=== PATIENT | female | born 1935 | race American Indian/Alaskan Native ===

== ENCOUNTER 2020-09-23 17:02 | Emergency (ER) | payer OTHER, MEDICAID ==
[2020-09-23 17:11] VITALS: BP 145/85
--- NOTE | 2020-09-23 17:38 | Event Note ---
ED Screening Note Date of service: 09/23/20 Time: 17:36 ED Screening Note: Patient complains of bruising and pain and swelling to her forearms mainly on the left side since September 16. Patient states that she had to have radioactive frequency ablation and the procedure required an IV. Patient states that he took multiple attempts to get an IV 2 of which did blow. She is on aspirin 81 mg only. she is concerned that she may have a blood clot This initial assessment/diagnostic orders/clinical plan/treatment(s) is/are subject to change based on patients health status, clinical progression and re- assessment by fellow clinical providers in the ED. Further treatment and workup at subsequent clinical providers discretion. Patient/guardian urged not to elope from the ED as their condition may be serious if not clinically assessed and managed. Initial orders include: Venous Doppler both bilateral upper extremity
--- NOTE | 2020-09-23 18:17 | Emergency Department Report ---
ED Extremity Problem HPI - General Chief complaint: Extremity Injury, Upper Stated complaint: POSS BLLOD CLOT LT ARM Time Seen by Provider: 09/23/20 18:11 Source: patient Mode of arrival: Ambulatory Limitations: No Limitations - History of Present Illness Initial comments: This is a 85-year-old female presents to the ED complaining left lower arm pain x8 days. Patient states that she had a procedure done on September 13 at [place] where she had an IV placed in her left arm. Patient states that the nurse that was placing her IV blew out 2 of her veins. Patient states that the next day she noticed some bruising to the arm. Patient states that she has been having pain in that arm since then. Patient denies any other injuries or trauma. Patient states that she is able to use the arm without any problems. She denies loss of sensation in the arm. She denies any other symptoms. MD Complaint: extremity pain - Related Data Home Medications Medication Instructions Recorded Confirmed Last Taken Aspirin [Aspirin BABY CHEW TAB] 81 mg PO QDAY 10/03/13 06/23/16 10/02/13 81 mg Pregabalin [Lyrica] 100 mg PO QDAY 10/03/13 06/23/16 10/02/13 100 mg amLODIPine 10 mg PO QDAY 10/03/13 06/23/16 10/02/13 10 mg Previous Rx's Medication Instructions Recorded Last Taken Type Famotidine [Pepcid] 20 mg PO QDAY #30 tablet 10/03/13 Unknown Rx Meclizine HCl [Antivert] 25 mg PO TID PRN #20 tablet 10/03/13 Unknown Rx traMADoL [Ultram] 50 mg PO Q6HR PRN #20 tablet 12/07/13 Unknown Rx Ondansetron [Zofran Odt] 4 mg PO Q6H PRN #20 tab.rapdis 06/23/16 Unknown Rx Naproxen [Naprosyn] 500 mg PO BID #30 tablet 09/23/20 Unknown Rx Allergies Allergy/AdvReac Type Severity Reaction Status Date / Time amitriptyline Allergy Unknown Verified 09/23/20 17:12 latex Allergy Rash Verified 09/23/20 17:12 monosodium glutamate Allergy Anaphylaxis Verified 09/23/20 17:12 pentosan polysulfate sodium Allergy Unknown Verified 09/23/20 17:12 [From [facility]] codeine AdvReac Vomiting Verified 11/02/14 09:28 morphine AdvReac Vomiting Verified 11/02/14 09:28 msg Allergy Anaphylaxis Uncoded 11/02/14 09:28 ED Review of Systems ROS: Stated complaint: POSS BLLOD CLOT LT ARM Other details as noted in HPI Comment: All other systems reviewed and negative ED Past Medical Hx - Past Medical History Previous Medical History?: Yes Hx Hypertension: Yes Hx Renal Disease: Yes Hx Kidney Stones: Yes Additional medical history: Coronary artery disease. peripheral neuropathy. CAD. spinal stensossis - Surgical History Past Surgical History?: Yes Hx Coronary Stent: Yes (2012) Additional Surgical History: lithotripsies. left ovary removed. tonsillectomy. radio frequency ablation of L4, L5 and S1 - Social History Smoking Status: Never Smoker Substance Use Type: None - Medications Home Medications: Home Medications Medication Instructions Recorded Confirmed Last Taken Type Aspirin [Aspirin BABY CHEW TAB] 81 mg PO QDAY 10/03/13 06/23/16 10/02/13 History 81 mg Famotidine [Pepcid] 20 mg PO QDAY #30 tablet 10/03/13 06/23/16 Unknown Rx Meclizine HCl [Antivert] 25 mg PO TID PRN #20 tablet 10/03/13 06/23/16 Unknown Rx Pregabalin [Lyrica] 100 mg PO QDAY 10/03/13 06/23/16 10/02/13 History 100 mg amLODIPine 10 mg PO QDAY 10/03/13 06/23/16 10/02/13 History 10 mg traMADoL [Ultram] 50 mg PO Q6HR PRN #20 tablet 12/07/13 06/23/16 Unknown Rx Ondansetron [Zofran Odt] 4 mg PO Q6H PRN #20 tab.rapdis 06/23/16 Unknown Rx Naproxen [Naprosyn] 500 mg PO BID #30 tablet 09/23/20 Unknown Rx ED Physical Exam - General Limitations: No Limitations General appearance: alert, in no apparent distress - Head Head exam: Present: atraumatic, normocephalic - Eye Eye exam: Present: normal appearance - ENT ENT exam: Present: mucous membranes moist - Neck Neck exam: Present: normal inspection - Respiratory Respiratory exam: Present: normal lung sounds bilaterally. Absent: respiratory distress - Cardiovascular Cardiovascular Exam: Present: regular rate, normal rhythm. Absent: systolic murmur, diastolic murmur, rubs, gallop - GI/Abdominal GI/Abdominal exam: Present: soft, normal bowel sounds - Extremities Exam Extremities exam: Present: normal inspection, full ROM, tenderness (To palpation of the left lower arm,), normal capillary refill, other (Ecchymosis noted on the left lower arm, contusion noted. Radial pulses present bilaterally). Absent: pedal edema, joint swelling - Back Exam Back exam: Present: normal inspection - Neurological Exam Neurological exam: Present: alert, oriented X3 - Psychiatric Psychiatric exam: Present: normal affect, normal mood - Skin Skin exam: Present: warm, dry, intact, normal color. Absent: rash ED Course Vital Signs 09/23/20 09/23/20 17:03 20:58 Temperature 98.5 F Pulse Rate 98 H 83 Respiratory 18 18 Rate Blood Pressure 145/85 O2 Sat by Pulse 97 97 Oximetry ED Medical Decision Making - Radiology Data Radiology results: report reviewed, image reviewed cc: TRE TELLES DUPLEX DOPPLER UPPER EXTREMITY VENOUS, BILATERAL INDICATION / CLINICAL INFORMATION: Upper extermity swelling/pain/bruising. TECHNIQUE: Duplex doppler imaging was performed through the veins of the right and left upper extremity using venous compression and other maneuvers. COMPARISON: None available. FINDINGS: RIGHT INTERNAL JUGULAR VEIN: Negative. RIGHT SUBCLAVIAN VEIN: Negative. RIGHT AXILLARY VEIN: Negative. RIGHT BRACHIAL VEIN: Negative. RIGHT FOREARM VEINS: Negative. RIGHT BASILIC VEIN (SUPERFICIAL): Negative. LEFT INTERNAL JUGULAR VEIN: Negative. LEFT SUBCLAVIAN VEIN: Negative. LEFT AXILLARY VEIN: Negative. LEFT BRACHIAL VEIN: Negative. LEFT FOREARM VEINS: Negative. LEFT BASILIC VEIN (SUPERFICIAL): Negative. ADDITIONAL FINDINGS: None. IMPRESSION: 1. No sonographic evidence for DVT in the right or left upper extremity. Signer Name: Rick Garcia MD Signed: 09/23/2020 8:10 PM Workstation Name: [id number] Transcribed By: DORA Dictated By: Rick Garcia MD Electronically Authenticated By: Rick Garcia MD Signed Date/Time: 09/23/202009 - Medical Decision Making 85-year-old female who presented with contusion and bruising of the left arm. Patient did have some ecchymoses and tender to palpation. Ultrasound shows no reasonable blood clot. I discussed with patient to follow-up with her primary care physician. All results discussed with patient. Negative DVT. Discussed with patient ice compression 3 times a day and pain control. Discussed follow up with her primary care physician. Discussed if any new symptoms or worsening symptoms she may return to the ED. Vital signs are normal she is in no acute distress. Patient understands all instructions given and states she will follow-up. Critical care attestation.: If time is entered above; I have spent that time in minutes in the direct care of this critically ill patient, excluding procedure time. ED Disposition Clinical Impression: Contusion, Hematoma, Contusion of left lower arm Disposition: - TO HOME OR SELFCARE Is pt being admited?: No Does the pt Need Aspirin: No Condition: Stable Instructions: Contusion, [id number] Additional Instructions: Make sure to follow up with the primary care physician as discussed. Take all your medications as you've been prescribed. If you have any worsening symptoms or develop new symptoms please return to ED immediately. Prescriptions: Naproxen [Naprosyn] 500 mg PO BID #30 tablet Referrals: MENDEZ CRISTOBAL MD [Primary Care Provider] - 3-5 Days Forms: Work/School Release Form(ED) Time of Disposition: 20:38
[2020-09-23] MEDS ORDERED: KETOROLAC 30 MG/1 ML INJ IM ONE (18:20)
--- NOTE | 2020-09-23 20:14 | Vascular Lab Report ---
DUPLEX DOPPLER UPPER EXTREMITY VENOUS, BILATERAL INDICATION / CLINICAL INFORMATION: Upper extermity swelling/pain/bruising. TECHNIQUE: Duplex doppler imaging was performed through the veins of the right and left upper extremity using ve nous compression and other maneuvers. COMPARISON: None available. FINDINGS: RIGHT INTERNAL JUGULAR VEIN: Negative. RIGHT SUBCLAVIAN VEIN: Negative. RIGHT AXILLARY VEIN: Negative. RIGHT BRACHIAL VEIN: Negative. RIGHT FOREARM VEINS: Negative. RIGHT BASILIC VEIN (SUPERFICIAL): Negative. LEFT INTERNAL JUGULAR VEIN: Negative. LEFT SUBCLAVIAN VEIN: Negative. LEFT AXILLARY VEIN: Negative. LEFT BRACHIAL VEIN: Negative. LEFT FOREARM VEINS: Negative. LEFT BASILIC VEIN (SUPERFICIAL): Negative. ADDITIONAL FINDINGS: None. IMPRESSION: 1. No sonographic evidence for DVT in the right or left upper extremity. Signer Name: Rick Garcia MD Signed: 09/23/2020 8:10 PM Workstation Name: [id number]
== END 2020-09-23 20:59 | disposition home or self-care (01) ==
LOC: ED 17:02
DX: S50.12XA Contusion of left forearm, initial encounter (principal); T14.8XXA Other injury of unspecified body region, initial encounter; I10 Essential (primary) hypertension; I25.10 Atherosclerotic heart disease of native coronary artery without angina pectoris; Z88.8 Allergy status to other drugs, medicaments and biological substances; Z91.040 Latex allergy status; Z79.899 Other long term (current) drug therapy; Z90.49 Acquired absence of other specified parts of digestive tract; Z98.890 Other specified postprocedural states; X58.XXXA Exposure to other specified factors, initial encounter; Y93.89 Activity, other specified; Y92.89 Other specified places as the place of occurrence of the external cause; Y99.8 Other external cause status
CPT/HCPCS: 93970; 96372; 99283; J1885

== ENCOUNTER 2020-12-04 11:58 | Emergency (ER) | payer OTHER, MEDICAID ==
[2020-12-04 13:15] VITALS: BP 143/78
--- NOTE | 2020-12-04 13:17 | Event Note ---
ED Screening Note Date of service: 12/04/20 Time: 13:16 ED Screening Note: Patient complains of low back pain radiating down the left leg x2 weeks, denies injury Also complains of bilateral leg swelling and pain x1 month Denies chest pain or shortness of breath No urinary symptoms per patient This initial assessment/diagnostic orders/clinical plan/treatment(s) is/are subject to change based on patients health status, clinical progression and re- assessment by fellow clinical providers in the ED. Further treatment and workup at subsequent clinical providers discretion. Patient/guardian urged not to elope from the ED as their condition may be serious if not clinically assessed and managed. Initial orders include: Labs X-ray Ultrasound
--- NOTE | 2020-12-04 14:10 | XRay Report ---
LUMBAR SPINE 3 VIEWS INDICATION / CLINICAL INFORMATION: pain, no injury, radiating down left leg. COMPARISON: None available. FINDINGS: Diffuse osteopenia. Mild anterolisthesis of L3 on L4 and L4 on L5. No other significant skeletal abno rmality Signer Name: Scott Sam MD FACR Signed: 12/04/2020 2:06 PM Workstation Name: [id number]
[2020-12-04 14:26] LABS: Basophils # (Auto) 0.1 K/mm3 (0.0-0.1); Basophils % (Auto) 0.8 % (0.0-1.8); Eosinophils # (Auto) 0.1 K/mm3 (0.0-0.4); Eosinophils % (Auto) 0.7 % (0.0-4.3); Hemoglobin 12.7 gm/dl (10.1-14.3); Lymphocytes # (Auto) 1.7 K/mm3 (1.2-5.4); Lymphocytes % (Auto) 22.2 % (13.4-35.0); Mean Corpuscular HGB Conc 33 % (30-34); Mean Corpuscular Volume 92 fl (79-97); Monocytes # (Auto) 0.5 K/mm3 (0.0-0.8); Monocytes % (Auto) 6.7 % (0.0-7.3); Platelet Count 321 K/mm3 (140-440); Red Blood Count 4.16 M/mm3 (3.65-5.03); Red Cell Distribution Width 13.7 % (13.2-15.2)
[2020-12-04 14:51] LABS: Alanine Aminotransferase 23 units/L (7-56); Albumin 3.9 g/dL (3.9-5); Blood Urea Nitrogen 14 mg/dL (7-17); Calcium 10.2 mg/dL (8.4-10.2); Hemolysis Index 2
[2020-12-04 14:53] LABS: BUN/Creatinine Ratio 23
--- NOTE | 2020-12-04 15:09 | Vascular Lab Report ---
DUPLEX DOPPLER LOWER EXTREMITY VEINS, BILATERAL INDICATION / CLINICAL INFORMATION: pain and swelling. TECHNIQUE: Duplex doppler imaging was performed through the veins of both lower extremities using venous nomi mercedes and other maneuvers. COMPARISON: None available. FINDINGS: RIGHT COMMON FEMORAL VEIN: Negative. RIGHT FEMORAL VEIN: Negative. RIGHT POPLITEAL VEIN: Negative. RIGHT CALF VEINS: Negative. LEFT COMMON FEMORAL VEIN: Negative. LEFT FEMORAL VEIN: Negative. LEFT POPLITEAL VEIN: Negative. LEFT CALF VEINS: Negative. ADDITIONAL FINDINGS: None. IMPRESSION: 1. No sonographic evidence for DVT in either lower extremity. Signer Name: Nolberto Robles MD Signed: 12/04/2020 3:05 PM Workstation Name: [id number]
[2020-12-04] MEDS ORDERED: KETOROLAC 30 MG/1 ML INJ IM ONE (19:33)
[2020-12-04] MEDS ORDERED: ONDANSETRON 4 MG ODT TAB PO ONE (19:33)
[2020-12-04] MEDS ORDERED: oxyCODONE /ACETAMINOPHEN 5-325MG TAB PO ONE (19:33)
[2020-12-04] MEDS ORDERED: dexAMETHasone 20 MG/5 ML VIAL IM ONE (19:33)
--- NOTE | 2020-12-04 20:36 | Emergency Department Report ---
ED Back Pain/Injury HPI - General Chief Complaint: Extremity Injury, Lower Stated Complaint: MUSCLE SPASMS, CAMPS, NOT ABLE TO SLEEP Time Seen by Provider: 12/04/20 13:14 Source: patient Limitations: Physical Limitation - History of Present Illness Initial Comments: Patient is an 85-year-old -[place] female with a history of hypertension, coronary artery disease s/p PTCA stents, chronic low back pain status post lumbar stenosis surgery kidney stone s/p lithotripsy procedure, and chronic neuropathy who presents to the ED with complaint of acute exacerbation of her chronic low back pain that radiates to the lower extremities bilaterally worse on the left for the last 2 weeks, worse in the last 3 days. Patient states that she has been taking medication for pain with no relief. Patient states that in the last 2 days she has not been able to sleep on her bed because of worsening low back pain that radiates to the left leg with increasing severity. Patient denies fall, dysuria, urinary frequency and urgency, bilateral lower extremity weakness, urinary retention, bowel incontinence, saddle paresthesia, chest pain, shortness of breath, abdominal pain, nausea and vomiting, hematuria, vaginal bleeding, fever and chills. MD Complaint: back pain (Lower), other (bilateral lower extremities) -: Sudden, days(s) (3 days), week(s) (2) Similar Symptoms Previously: Yes Place: home Radiation: none Severity scale (0 -10): 7 Quality: sharp, aching Consistency: constant Improves With: none Worsens With: movement, walking Context: turning/twisting Associated Symptoms: denies other symptoms. denies: confusion, weakness, chest pain, numbness, difficulty walking, cough, difficulty urinating, diaphoresis, incontinence, fever/chills, constipation, headaches, abdominal pain, loss of appetite, malaise, nausea/vomiting, rash, seizure, shortness of breath - Related Data Home Medications Medication Instructions Recorded Confirmed Last Taken Aspirin [Aspirin BABY CHEW TAB] 81 mg PO QDAY 10/03/13 06/23/16 10/02/13 81 mg Pregabalin [Lyrica] 100 mg PO QDAY 10/03/13 06/23/16 10/02/13 100 mg amLODIPine 10 mg PO QDAY 10/03/13 06/23/16 10/02/13 10 mg Previous Rx's Medication Instructions Recorded Last Taken Type Famotidine [Pepcid] 20 mg PO QDAY #30 tablet 10/03/13 Unknown Rx Meclizine HCl [Antivert] 25 mg PO TID PRN #20 tablet 10/03/13 Unknown Rx Ondansetron [Zofran Odt] 4 mg PO Q6H PRN #20 tab.rapdis 06/23/16 Unknown Rx Gabapentin 300 mg PO Q12H PRN #60 capsule 12/04/20 Unknown Rx Naproxen [Naprosyn TAB] 500 mg PO BID #30 tablet 12/04/20 Unknown Rx carisoprodoL [Soma] 350 mg PO QHS PRN #15 tablet 12/04/20 Unknown Rx cephALEXin [Keflex] 500 mg PO Q8HR #30 cap 12/04/20 Unknown Rx predniSONE [Deltasone] 40 mg PO QDAY #10 tab 12/04/20 Unknown Rx traMADoL [Ultram 50 MG tab] 50 mg PO Q6HR PRN #12 tablet 12/04/20 Unknown Rx Allergies Allergy/AdvReac Type Severity Reaction Status Date / Time amitriptyline Allergy Unknown Verified 12/04/20 13:15 latex Allergy Rash Verified 12/04/20 13:15 monosodium glutamate Allergy Anaphylaxis Verified 12/04/20 13:15 pentosan polysulfate sodium Allergy Unknown Verified 12/04/20 13:15 [From Elmiron] codeine AdvReac Vomiting Verified 12/04/20 13:15 morphine AdvReac Vomiting Verified 12/04/20 13:15 msg Allergy Anaphylaxis Uncoded 11/02/14 09:28 ED Review of Systems ROS: Stated complaint: MUSCLE SPASMS, CAMPS, NOT ABLE TO SLEEP Other details as noted in HPI Constitutional: denies: chills, fever Eyes: denies: eye pain, eye discharge, vision change ENT: denies: ear pain, throat pain Respiratory: denies: cough, shortness of breath, wheezing Cardiovascular: denies: chest pain, palpitations Endocrine: no symptoms reported Gastrointestinal: denies: abdominal pain, nausea, vomiting, diarrhea Genitourinary: denies: urgency, dysuria, frequency, hematuria, discharge, abnormal menses, dyspareunia Musculoskeletal: back pain (lower), arthralgia (bilateral lower extremities). denies: joint swelling Skin: denies: rash, lesions Neurological: denies: headache, weakness, paresthesias Psychiatric: denies: anxiety, depression Hematological/Lymphatic: denies: easy bleeding, easy bruising ED Past Medical Hx - Past Medical History Hx Hypertension: Yes Hx Renal Disease: Yes Hx Kidney Stones: Yes Additional medical history: Coronary artery disease. peripheral neuropathy. CAD. spinal stensossis - Surgical History Hx Coronary Stent: Yes (2012) Additional Surgical History: lithotripsies. left ovary removed. tonsillectomy. radio frequency ablation of L4, L5 and S1 - Social History Smoking Status: Never Smoker Substance Use Type: None - Medications Home Medications: Home Medications Medication Instructions Recorded Confirmed Last Taken Type Aspirin [Aspirin BABY CHEW TAB] 81 mg PO QDAY 10/03/13 06/23/16 10/02/13 History 81 mg Famotidine [Pepcid] 20 mg PO QDAY #30 tablet 10/03/13 06/23/16 Unknown Rx Meclizine HCl [Antivert] 25 mg PO TID PRN #20 tablet 10/03/13 06/23/16 Unknown Rx Pregabalin [Lyrica] 100 mg PO QDAY 10/03/13 06/23/16 10/02/13 History 100 mg amLODIPine 10 mg PO QDAY 10/03/13 06/23/16 10/02/13 History 10 mg Ondansetron [Zofran Odt] 4 mg PO Q6H PRN #20 tab.rapdis 06/23/16 Unknown Rx Gabapentin 300 mg PO Q12H PRN #60 capsule 12/04/20 Unknown Rx Naproxen [Naprosyn TAB] 500 mg PO BID #30 tablet 12/04/20 Unknown Rx carisoprodoL [Soma] 350 mg PO QHS PRN #15 tablet 12/04/20 Unknown Rx cephALEXin [Keflex] 500 mg PO Q8HR #30 cap 12/04/20 Unknown Rx predniSONE [Deltasone] 40 mg PO QDAY #10 tab 12/04/20 Unknown Rx traMADoL [Ultram 50 MG tab] 50 mg PO Q6HR PRN #12 tablet 12/04/20 Unknown Rx ED Physical Exam - General Limitations: Physical Limitation General appearance: alert, in no apparent distress - Head Head exam: Present: atraumatic, normocephalic, normal inspection - Eye Eye exam: Present: normal appearance, PERRL, EOMI Pupils: Present: normal accommodation - ENT ENT exam: Present: normal exam, normal orophraynx, mucous membranes moist, TM's normal bilaterally, normal external ear exam - Neck Neck exam: Present: normal inspection, full ROM - Respiratory Respiratory exam: Present: normal lung sounds bilaterally. Absent: respiratory distress, wheezes, rales, rhonchi, chest wall tenderness, accessory muscle use, decreased breath sounds, prolonged expiratory - Cardiovascular Cardiovascular Exam: Present: normal rhythm, tachycardia, normal heart sounds. Absent: systolic murmur, diastolic murmur, rubs, gallop - GI/Abdominal GI/Abdominal exam: Present: soft, normal bowel sounds. Absent: tenderness, guarding, rebound, hyperactive bowel sounds, hypoactive bowel sounds, organomegaly - Extremities Exam Extremities exam: Present: normal inspection, full ROM, normal capillary refill - Back Exam Back exam: Present: normal inspection, full ROM, tenderness (Palpable lumbosacral paraspinal musculoskeletal tenderness), muscle spasm, paraspinal tenderness. Absent: CVA tenderness (R), CVA tenderness (L), vertebral tenderness - Neurological Exam Neurological exam: Present: alert, oriented X3, CN II-XII intact, normal gait, reflexes normal - Psychiatric Psychiatric exam: Present: normal affect, normal mood - Skin Skin exam: Present: warm, dry, intact, normal color. Absent: rash ED Course Vital Signs 12/04/20 13:12 Temperature 97.9 F Pulse Rate 104 H Respiratory 16 Rate Blood Pressure 143/78 O2 Sat by Pulse 100 Oximetry ED Medical Decision Making - Lab Data Result diagrams: 12/04/20 13:55 12/04/20 13:55 - Radiology Data Radiology results: report reviewed, image reviewed [facility] [address] [place] [address] XRay Report Signed Patient: LASHON MERAZ MR#: [id number] : 1935 Acct:[id number] Age/Sex: 85 / F ADM Date: 12/04/20 Loc: ED Attending Dr: Ordering Physician: BAYLEE MOLINA Date of Service: 12/04/20 Procedure(s): XR spine lumbosacral 2-3V Accession Number(s): [id number] cc: BAYLEE MOLINA Fluoro Time In Minutes: LUMBAR SPINE 3 VIEWS INDICATION / CLINICAL INFORMATION: pain, no injury, radiating down left leg. COMPARISON: None available. FINDINGS: Diffuse osteopenia. Mild anterolisthesis of L3 on L4 and L4 on L5. No other significant skeletal abnormality Signer Name: Scott Sam MD FACR Signed: 12/04/2020 2:06 PM Workstation Name: [id number] Transcribed By: MS Dictated By: Scott Sam MD Electronically Authenticated By: Scott Sam MD Signed Date/Time: 12/04/201405 DD/ 04 TD/TT: [facility] [address] [place] [address] Vascular Lab Report Signed Patient: LASHON MERAZ MR#: [id number] : 1935 Acct:[id number] Age/Sex: 85 / F ADM Date: 12/04/20 Loc: ED Attending Dr: Ordering Physician: BAYLEE MOLINA Date of Service: 12/04/20 Procedure(s): VL venous duplex LE BILAT Accession Number(s): [id number] cc: BAYLEE MOLINA DUPLEX DOPPLER LOWER EXTREMITY VEINS, BILATERAL INDICATION / CLINICAL INFORMATION: pain and swelling. TECHNIQUE: Duplex doppler imaging was performed through the veins of both lower extremit ies using venous compression and other maneuvers. COMPARISON: None available. FINDINGS: RIGHT COMMON FEMORAL VEIN: Negative. RIGHT FEMORAL VEIN: Negative. RIGHT POPLITEAL VEIN: Negative. RIGHT CALF VEINS: Negative. LEFT COMMON FEMORAL VEIN: Negative. LEFT FEMORAL VEIN: Negative. LEFT POPLITEAL VEIN: Negative. LEFT CALF VEINS: Negative. ADDITIONAL FINDINGS: None. IMPRESSION: 1. No sonographic evidence for DVT in either lower extremity. Signer Name: Nolberto Robles MD Signed: 12/04/2020 3:05 PM Workstation Name: [id number] Transcribed By: TL Dictated By: Nolberto Robles MD Electronically Authenticated By: Nolberto Robles MD Signed Date/Time: 12/04/201504 DD/ 04 TD/TT: - Medical Decision Making This is an 85-year-old -[place] female with a history of hypertension, coronary artery disease s/p PTCA stents, chronic low back pain status post lumbar stenosis surgery kidney stone s/p lithotripsy procedure, and chronic neuropathy who presents to the ED with complaint of acute exacerbation of her chronic low back pain that radiates to the lower extremities bilaterally worse on the left for the last 2 weeks, worse in the last 3 days. Patient states that she has been taking medication for pain with no relief. Patient states that in the last 2 days she has not been able to sleep on her bed because of worsening low back pain that radiates to the left leg with increasing severity. In the ED, patient is alert and oriented x3 and is not in any distress. Patient however appears to be in significant pain. Patient was treated for pain in the ED and lab test results were reviewed and are all nonactionable. The L-spine x- ray showed no acute fractures or subluxation but chronic degenerative lumbar disc disease. Bilateral lower extremity Doppler ultrasound showed no sonographic evidence of DVT. Urinalysis showed significant urinary tract infection. On reevaluation, patient's pain is well controlled medications. Patient symptoms are likely due to muscle spasm and sciatica complicated by acute urinary tract infection. Patient was therefore discharged home on medications and advised to follow-up with her primary care physician in 5 to 7 days for reevaluation. Patient is advised return to the ED immediately if symptoms get worse. - Differential Diagnosis Chronic Low back pain; UTI; sciatica; Muscle spasm; muscle strain Critical care attestation.: If time is entered above; I have spent that time in minutes in the direct care of this critically ill patient, excluding procedure time. ED Disposition Clinical Impression: Spasm of muscle of lower back, Acute urinary tract infection Chronic low back pain with left-sided sciatica Qualifiers: Back pain laterality: left Qualified Code(s): M54.42 - Lumbago with sciatica, left side; G89.29 - Other chronic pain Disposition: DC-01 TO HOME OR SELFCARE Is pt being admited?: No Does the pt Need Aspirin: No Condition: Stable Instructions: Urinary Tract Infection, Adult, [id number], Chronic Back Pain, [id number], Muscle Cramps and Spasms, [id number], Sciatica Additional Instructions: All lab test results were reviewed and are all nonactionable except for urinalysis that showed urinary tract infection. The L-spine x-ray showed diffuse osteopenia. Mild anterolisthesis of L3 on L4 and L4 on L5. No other significant skeletal abnormality. The bilateral lower extremity Doppler ultrasound showed no sonographic evidence of DVT. Therefore based on your history and physical exam findings, and the lab test results as well as the imaging reports, your symptoms are likely due to muscle spasm versus a condition called sciatica which is lumbar radiculopathy involving the sciatic nerve that radiates the pain to your lower extremities bilaterally. Therefore take medications with food, drink plenty of fluids and follow-up with your primary care physician in 5 to 7 days for reevaluation. Return to the ED immediately if symptoms get worse. Prescriptions: carisoprodoL [Soma] 350 mg PO QHS PRN #15 tablet PRN Reason: Muscle Spasm predniSONE [Deltasone] 40 mg PO QDAY #10 tab Gabapentin 300 mg PO Q12H PRN #60 capsule PRN Reason: neuropathy cephALEXin [Keflex] 500 mg PO Q8HR #30 cap Naproxen [Naprosyn TAB] 500 mg PO BID #30 tablet traMADoL [Ultram 50 MG tab] 50 mg PO Q6HR PRN #12 tablet PRN Reason: Pain Referrals: MENDEZ CRISTOBAL MD [Primary Care Provider] - 3-5 Days Time of Disposition: 20:38 Print Language: BELARUSIAN
[2020-12-04 21:48] LABS: Bilirubin,Urine NEG (Negative); Blood,Urine NEG (Negative); Color,Urine Yellow (Yellow); Mucus,Urine FEW /HPF; Protein,Urine <15 mg/dL mg/dL (Negative); Urobilinogen,Urine < 2.0 mg/dL (<2.0)
== END 2020-12-04 22:42 | disposition home or self-care (01) ==
LOC: ED 11:58
DX: M54.42 Lumbago with sciatica, left side (principal); M62.830 Muscle spasm of back; N39.0 Urinary tract infection, site not specified; I10 Essential (primary) hypertension; I25.10 Atherosclerotic heart disease of native coronary artery without angina pectoris; Z87.442 Personal history of urinary calculi; Z90.89 Acquired absence of other organs; Z95.818 Presence of other cardiac implants and grafts; Z88.8 Allergy status to other drugs, medicaments and biological substances; Z91.040 Latex allergy status; Z88.5 Allergy status to narcotic agent; Z79.82 Long term (current) use of aspirin; Z79.899 Other long term (current) drug therapy
CPT/HCPCS: 36415; 72100; 80053; 81001; 83880; 85025; 87086; 93970; 96372; 99284; J1100; J1885; Q0162

== ENCOUNTER 2021-03-02 11:11 | Emergency (ER) | payer OTHER, MEDICAID ==
[2021-03-02 12:58] VITALS: BP 167/97
[2021-03-02 12:59] LABS: Bilirubin,Urine NEG (Negative); Blood,Urine LG (Negative); Color,Urine Straw (Yellow); Protein,Urine <15 mg/dL mg/dL (Negative); Urobilinogen,Urine < 2.0 mg/dL (<2.0)
== END 2021-03-02 17:35 | disposition left against medical advice (07) ==
LOC: ED 11:11
DX: R10.9 Unspecified abdominal pain (principal); Z53.21 Procedure and treatment not carried out due to patient leaving prior to being seen by health care provider
CPT/HCPCS: 81001; 87086

== ENCOUNTER 2021-04-11 09:36 | Emergency (ER) | payer MEDICARE ==
[2021-04-11] MEDS ORDERED: traMADol 50 MG TAB PO ONE (10:14)
[2021-04-11] MEDS ORDERED: ACETAMINOPHEN 500 MG TAB PO ONE (10:14)
[2021-04-11] MEDS ORDERED: GABAPENTIN 300 MG CAP PO ONE (10:14)
--- NOTE | 2021-04-11 10:42 | Emergency Department Report ---
ED Fall HPI - General Chief Complaint: Pain General Stated Complaint: POSS BLOOD CLOTS Time Seen by Provider: 04/11/21 09:55 Source: patient Mode of arrival: Ambulatory - History of Present Illness Initial Comments: CC: neck pain HPI: This is an 85 yo female with hx of carotid artery stenosis, lumbar DDD, kidney stones who presents with left neck pain. She fell in the bathroom a few days ago. She struck the left side of her head on the bath tub. No LOC. She was evaluated at [facility] after the fall. She had a CT scan of her head. She did not receive imaging of her neck. She is worried that the pain in related to the blockage in her carotid artery. She has sharp left-sided neck pain worse with head movement. Pain is relieved with she applies pressure. Moderate pain. Mild pain after fall. Worse pain upon awakening this morning. No weakness of arms or legs. MD Complaint: fall -: Gradual, This morning Fall From: other (patient stumbled and fell in bathroom) When Fall Occurred: other (1-2 days ago) Place Fall Occurred: home Loss of Consciousness: none Prolonged Down Time?: no Location: head, neck Severity: mild, moderate Context: tripped/slipped Associated Symptoms: neck pain - Related Data Home Medications Medication Instructions Recorded Confirmed Last Taken Aspirin [Aspirin BABY CHEW TAB] 81 mg PO QDAY 10/03/13 04/11/21 04/11/21 11:28 Pregabalin [Lyrica] 150 mg PO TID 10/03/13 04/11/21 04/10/21 amLODIPine 10 mg PO QDAY 10/03/13 04/11/21 04/10/21 Cyclobenzaprine HCl [Flexeril 5 MG 5 mg PO Q12HR 04/09/21 04/11/21 04/10/21 TAB] EPINEPHrine [Epinephrinesnap-V] 1 mg IJ PRN PRN 04/09/21 04/11/21 04/10/21 Famotidine [Pepcid] 20 mg PO PRN PRN 04/09/21 04/11/21 04/10/21 Gabapentin 300 mg PO TID 04/09/21 04/11/21 04/10/21 Loratadine [Allergy] 10 mg PO PRN PRN 04/09/21 04/11/21 04/10/21 Nitroglycerin [Nitrostat] 0.4 mg SL Q5M PRN 04/09/21 04/11/21 Unknown Previous Rx's Medication Instructions Recorded Last Taken Type traMADoL [Ultram 50 MG tab] 50 mg PO Q6HR PRN #12 tablet 12/04/20 04/11/21 11:28 Rx Allergies Allergy/AdvReac Type Severity Reaction Status Date / Time amitriptyline Allergy PASS OUT Verified 04/09/21 11:58 latex Allergy Rash Verified 03/02/21 12:19 pentosan polysulfate sodium Allergy PASS OUT Verified 04/09/21 11:58 [From Elmiron] codeine AdvReac Vomiting Verified 03/02/21 12:19 morphine AdvReac Anaphylaxis Verified 04/09/21 11:58 msg Allergy Anaphylaxis Uncoded 11/02/14 09:28 ED Review of Systems ROS: Stated complaint: POSS BLOOD CLOTS Other details as noted in HPI ED Past Medical Hx - Past Medical History Previous Medical History?: Yes Hx Hypertension: Yes (X 15 YRS) Hx Heart Attack/AMI: No Hx GERD: Yes (FOOD RELATED / PRN MEDS) Hx Renal Disease: Yes Hx Kidney Stones: Yes Hx Tuberculosis: No (GRANDFATHER OF TB / PT TEST NEGATIVE) Additional medical history: Coronary artery disease. peripheral neuropathy. CAD. spinal stensossis - Surgical History Past Surgical History?: Yes Hx Coronary Stent: Yes (X1 (2012)) Additional Surgical History: lithotripsies. left ovary removed. tonsillectomy. radio frequency ablation of L4, L5 and S1 - Social History Smoking Status: Never Smoker - Medications Home Medications: Home Medications Medication Instructions Recorded Confirmed Last Taken Type Aspirin [Aspirin BABY CHEW TAB] 81 mg PO QDAY 10/03/13 04/11/21 04/11/21 11:28 History Pregabalin [Lyrica] 150 mg PO TID 10/03/13 04/11/21 04/10/21 History amLODIPine 10 mg PO QDAY 10/03/13 04/11/21 04/10/21 History traMADoL [Ultram 50 MG tab] 50 mg PO Q6HR PRN #12 tablet 12/04/20 04/11/21 04/11/21 11:28 Rx Cyclobenzaprine HCl [Flexeril 5 MG 5 mg PO Q12HR 04/09/21 04/11/21 04/10/21 History TAB] EPINEPHrine [Epinephrinesnap-V] 1 mg IJ PRN PRN 04/09/21 04/11/21 04/10/21 History Famotidine [Pepcid] 20 mg PO PRN PRN 04/09/21 04/11/21 04/10/21 History Gabapentin 300 mg PO TID 04/09/21 04/11/21 04/10/21 History Loratadine [Allergy] 10 mg PO PRN PRN 04/09/21 04/11/21 04/10/21 History Nitroglycerin [Nitrostat] 0.4 mg SL Q5M PRN 04/09/21 04/11/21 Unknown History ED Physical Exam - General Limitations: No Limitations General appearance: alert, in no apparent distress - Head Head exam: Present: atraumatic, normocephalic - Eye Eye exam: Present: normal appearance - ENT ENT exam: Present: mucous membranes moist - Neck Neck exam: Present: other (Patient keeps neck in flexed position limited range of motion) - Respiratory Respiratory exam: Present: normal lung sounds bilaterally. Absent: respiratory distress, wheezes, rales, rhonchi - Cardiovascular Cardiovascular Exam: Present: regular rate, normal rhythm. Absent: rubs, gallop - GI/Abdominal GI/Abdominal exam: Present: soft. Absent: distended, tenderness, guarding, rebound - Extremities Exam Extremities exam: Present: pedal edema - Neurological Exam Neurological exam: Present: alert, oriented X3 - Psychiatric Psychiatric exam: Present: normal affect, normal mood - Skin Skin exam: Present: warm, dry, intact, normal color. Absent: rash ED Course Vital Signs 04/11/21 04/11/21 09:41 11:35 Temperature 98 F 98.3 F Pulse Rate 115 H 105 H Respiratory 16 16 Rate Blood Pressure 146/78 Blood Pressure 151/85 [Left] O2 Sat by Pulse 96 98 Oximetry ED Medical Decision Making - Radiology Data Radiology results: report reviewed Study Comments [facility] [address] [place] [address] Cat Scan Report Signed Patient: LASHON MERAZ MR#: [id number] : 1935 Acct:[id number] Age/Sex: 85 / F ADM Date: 04/11/21 Loc: ED Attending Dr: Ordering Physician: Hamida Hough MD Date of Service: 04/11/21 Procedure(s): CT cervical spine wo con Accession Number(s): [id number] cc: Hamida Hough MD . CT cervical spine wo con INDICATION / CLINICAL INFORMATION: 85 years Female; neck pain fall. TECHNIQUE: Axial CT images of the cervical spine were obtained. Sagittal and coronal reformatted images were produced. All CT scans at this location are performed using CT dose reduction for ALARA by means of automated exposure control. COMPARISON: None available. FINDINGS: POST-SURGICAL CHANGES: None. ALIGNMENT: Mild kyphosis noted. VERTEBRAE: No signs of fracture identified. Loss of height seen at multiple levels. Anterior posterior spondylosis seen as well. Significant osseous foraminal narrowing seen on the left at C4-5 and C5-C6, as well as C7-T1, largely related uncinate hypertrophy. Similar findings on the right to a lesser degree at C4-5, C5-C 6, and C7-T1. INTRAVERTEBRAL DISCS: Significant, multilevel disc space narrowing seen. Mild disc disease seen at multiple levels. No definitive signs of significant canal stenosis noted. PARASPINAL SOFT TISSUES: No significant abnormality. ADDITIONAL FINDINGS: Markedly enlarged left thyroid lobe nodule seen with rightward displacement of the trachea identified. No significant tracheal narrowing appreciated. Follow-up with ultrasound as clinically warranted. IMPRESSION: 1. No signs of acute bony trauma to the cervical spine. Signer Name: David Ernandez MD, III Signed: 04/11/2021 1:18 PM Workstation Name: [id number] Transcribed By: HR Dictated By: David Ernandez MD Electronically Authenticated By: David Ernandez MD Signed Date/Time: 04/11/21 1318 DD/ 1315 - Medical Decision Making Neck pain due to cervical disc disease: Recommended home medication tramadol gabapentin. Referred to spine surgery service. Critical care attestation.: If time is entered above; I have spent that time in minutes in the direct care of this critically ill patient, excluding procedure time. ED Disposition Clinical Impression: Cervical disc disease, Fall Disposition: HOME / SELF CARE / HOMELESS Is pt being admited?: No Does the pt Need Aspirin: No Condition: Stable Referrals: MATTHEW FERNANDEZ II, MD [Staff Physician] - 3-5 Days
--- NOTE | 2021-04-11 13:22 | Cat Scan Report ---
. CT cervical spine wo con INDICATION / CLINICAL INFORMATION: 85 years Female; neck pain fall. TECHNIQUE: Axial CT images of the cervical spine were obtained. Sagittal and coronal reformatted images were pr oduced. All CT scans at this location are performed using CT dose reduction for ALARA by means of aut omated exposure control. COMPARISON: None available. FINDINGS: POST-SURGICAL CHANGES: None. ALIGNMENT: Mild kyphosis noted. VERTEBRAE: No signs of fracture identified. Loss of height seen at multiple levels. Anterior posterior spondylosis seen as well. Significant osseous foraminal narrowing seen on the left at C4-5 and C5-C6, as well as C7-T1, largely related uncinate hypertrophy. Similar findings on the right to a lesser degree at C4-5, C5-C6, and C 7-T1. INTRAVERTEBRAL DISCS: Significant, multilevel disc space narrowing seen. Mild disc disease seen at mu ltiple levels. No definitive signs of significant canal stenosis noted. PARASPINAL SOFT TISSUES: No significant abnormality. ADDITIONAL FINDINGS: Markedly enlarged left thyroid lobe nodule seen with rightward displacement of t he trachea identified. No significant tracheal narrowing appreciated. Follow-up with ultrasound as cl inically warranted. IMPRESSION: 1. No signs of acute bony trauma to the cervical spine. Signer Name: David Ernandez MD, III Signed: 04/11/2021 1:18 PM Workstation Name: [id number]
[2021-04-11] MEDS ORDERED: KETOROLAC 30 MG/1 ML INJ IM ONE (13:45)
[2021-04-11 14:03] VITALS: BP 144/75
== END 2021-04-11 14:04 | disposition home or self-care (01) ==
LOC: ED 09:36
DX: M50.90 Cervical disc disorder, unspecified, unspecified cervical region (principal); I12.9 Hypertensive chronic kidney disease with stage 1 through stage 4 chronic kidney disease, or unspecified chronic kidney disease; N18.9 Chronic kidney disease, unspecified; Z87.442 Personal history of urinary calculi; K21.9 Gastro-esophageal reflux disease without esophagitis; G62.9 Polyneuropathy, unspecified; M48.00 Spinal stenosis, site unspecified; Z98.890 Other specified postprocedural states; Z91.040 Latex allergy status; Z88.5 Allergy status to narcotic agent; Z88.8 Allergy status to other drugs, medicaments and biological substances; W18.30XA Fall on same level, unspecified, initial encounter; Y93.89 Activity, other specified; Y92.091 Bathroom in other non-institutional residence as the place of occurrence of the external cause; Y99.8 Other external cause status
CPT/HCPCS: 72125; 99283; J1885

== ENCOUNTER 2021-04-14 07:08 | Day surgery (SDC) | payer MEDICARE ==
[~2021-04-14 07:08] MED LIST: LACTATED RINGERS 1,000 ML IV SCH
[2021-04-14] MEDS ORDERED: ONDANSETRON 4 MG/2 ML INJ IV PRN (08:54)
[2021-04-14] MEDS ORDERED: KETOROLAC 30 MG/1 ML INJ IV NR (08:54)
[2021-04-14] MEDS ORDERED: fentaNYL 100 MCG/2 ML INJ IV PRN (08:54)
--- NOTE | 2021-04-14 08:54 | Anesthesia Day of Surgery ---
Anesthesia Day of Surgery - Day of Surgery Patient Examined: Yes Patient H&P Reviewed: Yes Patient is NPO: Yes
--- NOTE | 2021-04-14 08:54 | Anesthesia Consultation ---
Anesthesia Consult and Med Hx Date of service: 04/14/21 - Airway Anesthetic Teeth Evaluation: Good ROM Head & Neck: Inadequate (restricted extension 2/2 pain) Mental/Hyoid Distance: Adequate Mallampati Class: Class III Intubation Access Assessment: Possibly Difficult - Pre-Operative Health Status ASA Pre-Surgery Classification: ASA3 Proposed Anesthetic Plan: General - Pulmonary Hx Smoking: No Hx Respiratory Symptoms: No Hx Sleep Apnea: No (DIDI PRE SCREEN LOW RISK) - Cardiovascular System Hx Hypertension: Yes (took amlodipine this morning) Hx Coronary Artery Disease: Yes Hx Heart Attack/AMI: No Hx Percutaneous Transluminal Coronary Angioplasty (PTCA): Yes (2012; last dose ASA 04/13/21 PM) Hx Cardia Arrhythmia: No Hx Peripheral Vascular Disease: Yes - Central Nervous System CVA: No Hx Back Pain: Yes (chronic neck and low back pain extending into b/l LE L>R) - Endocrine Hx Renal Disease: No Hx Liver Disease: No Hx Insulin Dependent Diabetes: No Hx Non-Insulin Dependent Diabetes: No Hx Thyroid Disease: No - Other Systems Hx Obesity: Yes (BMI 32) - Additional Comments Anesthesia Medical History Comments: Hx prolonged sedation after receiving ?versed. No issues with more recent anesthetics. Complaining of pain in the low back and left leg related to known sciatic nerve pain. States that she received toradol from pain specialist and is requesting toradol prior to procedure to help with pain while laying flat. No other NSAIDs on med list and denies hx renal disease. Will give dose IV toradol in preop.
[2021-04-14] MEDS ORDERED: ceFAZolin/STERILE WATER 2 GM/20 ML SYRINGE IV NR (09:00)
[2021-04-14] MEDS ORDERED: dexAMETHasone 20 MG/5 ML VIAL ONE (09:36)
[2021-04-14] MEDS ORDERED: LIDOCAINE MPF (2%) 20 MG/1 ML VIAL 5 ML ONE (09:36)
[2021-04-14] MEDS ORDERED: propofoL 200 MG/20 ML VIAL IV ONE (09:37)
[2021-04-14] MEDS ORDERED: PHENYLEPHRINE/NS 1,000 MCG/10 ML SYRINGE (OR USE) IV ONE (10:17)
[2021-04-14] MEDS ORDERED: SODIUM CHLORIDE 0.9% IRRIG SOLN 2000 ML IR ONE (10:30)
--- NOTE | 2021-04-14 10:53 | Short Stay Summary ---
Short Stay Documentation Date of service: 04/14/21 - History H&P: obtained from office - Allergies and Medications Current Medications: Allergies amitriptyline Allergy (Verified 04/09/21 11:58) PASS OUT latex Allergy (Verified 03/02/21 12:19) Rash pentosan polysulfate sodium [From Elmiron] Allergy (Verified 04/09/21 11:58) PASS OUT codeine Adverse Reaction (Verified 03/02/21 12:19) Vomiting morphine Adverse Reaction (Verified 04/09/21 11:58) Anaphylaxis msg Allergy (Uncoded 11/02/14 09:28) Anaphylaxis Home Medications Medication Instructions Recorded Confirmed Last Taken Type Aspirin [Aspirin BABY CHEW TAB] 81 mg PO QDAY 10/03/13 04/11/21 04/13/21 History Pregabalin [Lyrica] 150 mg PO TID 10/03/13 04/11/21 04/13/21 History amLODIPine 10 mg PO QDAY 10/03/13 04/11/21 04/14/21 06:00 History traMADoL [Ultram 50 MG tab] 50 mg PO Q6HR PRN #12 tablet 12/04/20 04/11/21 04/13/21 Rx Cyclobenzaprine HCl [Flexeril 5 MG 5 mg PO Q12HR 04/09/21 04/11/21 04/13/21 History TAB] EPINEPHrine [Epinephrinesnap-V] 1 mg IJ PRN PRN 04/09/21 04/11/21 04/10/21 History Famotidine [Pepcid] 20 mg PO PRN PRN 04/09/21 04/11/21 04/13/21 History Gabapentin 300 mg PO TID 04/09/21 04/11/21 04/14/21 06:00 History Loratadine [Allergy] 10 mg PO PRN PRN 04/09/21 04/11/21 04/13/21 History Nitroglycerin [Nitrostat] 0.4 mg SL Q5M PRN 04/09/21 04/11/21 Unknown History Active Medications Cefazolin Sodium (Cefazolin/Sterile Water 2 Gm/20 Ml Syringe) 2 gm IV PREOP NR Stop: 04/14/21 21:00 Fentanyl (Fentanyl 100 Mcg/2 Ml Inj) 25 mcg IV Q5MIN PRN PRN Reason: Pain , Severe (7-10) Stop: 04/14/21 23:00 Lactated Ringer's (Lactated Ringers) 1,000 mls @ 100 mls/hr IV DIRECT SATNAM Stop: 04/14/21 23:59 Last Admin: 04/14/21 09:05 Dose: 100 mls/hr Documented by: Ketorolac Tromethamine (Ketorolac 30 Mg/1 Ml Inj) 15 mg IV ONCE NR Stop: 04/14/21 20:00 Last Admin: 04/14/21 09:07 Dose: 15 mg Documented by: Ondansetron HCl (Ondansetron 4 Mg/2 Ml Inj) 4 mg IV ONCE PRN PRN Reason: Nausea And Vomiting Stop: 04/14/21 16:00 - Brief post op/procedure progress note Date of procedure: 04/14/21 Pre-op diagnosis: rt ureteral stone Post-op diagnosis: same Procedure: cysto, rpg, rt ureteroscopy basket stone, stent with external string Anesthesia: LARRY Surgeon: MEGAN ORDOÑEZ Condition: stable - Hospital course Hospital course: post op info on chart, tramadol, macrobid on chart - Disposition Condition at discharge: Stable Disposition: 01 HOME / SELF CARE / HOMELESS Short Stay Discharge Plan Follow up with: MENDEZ CRISTOBAL MD [Primary Care Provider] - 7 Days
--- NOTE | 2021-04-14 11:38 | Operative Report ---
DATE OF SURGERY: 04/14/2021 PREOPERATIVE DIAGNOSIS: Right ureteral stone. POSTOPERATIVE DIAGNOSIS: Right ureteral stone. PROCEDURE PERFORMED: Cystoscopy, bilateral retrograde pyelograms, right ureteroscopy, basket stone extraction, double-J stent placement with (6-Vincentian 24 cm with an external string). SURGEON: Oswald Jolly MD ANESTHESIA: General. ESTIMATED BLOOD LOSS: Minimal. FLUIDS: Crystalloid. COMPLICATIONS: No complications. INDICATIONS: This patient is an 85-year-old female known to our service since 2014, intermittently, last seen 2017. She presented to the office with right flank pain. CT of abdomen and pelvis revealed a 5 mm distal stone, a 10 mm right lower pole renal stone. We discussed options. She agreed to proceed with surgical intervention. DESCRIPTION OF PROCEDURE: The patient was taken to the operative suite, placed in a supine position. After adequate general anesthesia, placed in the dorsal lithotomy position, prepped and draped in a sterile fashion. Pancystourethroscopy was performed with a 22-Vincentian Storz cystoscope. No bladder pathology. Bilateral retrograde pyelograms were obtained with an 8-Vincentian Haakon catheter and 8 mL of contrast. No filling defects or obstruction on the left. Right side obvious stone in the 10 mm stone in the lower pole of the kidney and a distal filling defect. A 0.035 Glidewire x2 was placed under fluoroscopic guidance in the right side. Rigid ureteroscopy, the stone was embedded somewhat in the distal ureter. I was able to be manipulated into the lumen, basket stone extraction using a 3-Vincentian Keara was performed. A 6-Vincentian 20 ureteroscopy up to the renal pelvis, no other stones could be appreciated 6-Vincentian 24 cm double-J stent with external string was left indwelling. The patient was extubated and taken to recovery room. Due to her allergies, she will go home on Macrobid and tramadol. TID: [id number] RECEIPT: [id number] Adelita/RENU
--- NOTE | 2021-04-14 13:24 | Fluoroscopy Report ---
INTRAOPERATIVE FLUOROSCOPY: RETROGRADE UROGRAPHY INDICATION: RT URETERAL STONE. TECHNIQUE: Intraoperative spot images were obtained during the procedure. FINDINGS: Left renal calyces are sharp and no filling defects are seen in the left renal collecting system. Interval placement of double-J right ureteral stent. There is a punctate stone within the mid right u reter. There is also a right renal collecting system stone. Please see procedure note for details. Fluoroscopy Time: 35 second. Fluoroscopy Images: 6. Signer Name: Jon Roa MD Signed: 04/14/2021 1:20 PM Workstation Name: [id number]
--- NOTE | 2021-04-14 15:04 | Post Anesthesia Evaluation ---
- Post Anesthesia Evaluation Patient Participated: Yes Airway Patent: Yes Stable Respiratory Function: Yes Nausea/Vomiting: No Temp > 96.8F: Yes Pain Manageable: Yes Adequeate Hydration: Yes Anesthesia Complications: No
[2021-04-14 17:56] VITALS: BP 135/67
== END 2021-04-14 07:09 | disposition home or self-care (01) ==
LOC: OR 07:08
PROVIDERS: ATTEND Urology
DX: N20.1 Calculus of ureter (principal); Z20.822 Contact with and (suspected) exposure to COVID-19; I10 Essential (primary) hypertension; I25.10 Atherosclerotic heart disease of native coronary artery without angina pectoris; I73.9 Peripheral vascular disease, unspecified; Z95.5 Presence of coronary angioplasty implant and graft; Z79.899 Other long term (current) drug therapy; Z98.890 Other specified postprocedural states
CPT/HCPCS: 52332; 52352; 74420; A4217; C1758; C1769; C2617; J0690; J1100; J1885; J2370; J2405; J2704; J3010; J7120; Q9967; U0003

== ENCOUNTER 2021-05-18 17:30 | Emergency (ER) | payer MEDICARE ==
[2021-05-18 17:36] VITALS: BP 123/75
[2021-05-18] MEDS ORDERED: TETANUS,DIPH,PERTUSS(ACELL) VACCINE 0.5 ML SYRINGE IM ONE (17:36)
--- NOTE | 2021-05-18 17:36 | Emergency Department Report ---
ED Animal Bite HPI - General Stated Complaint: CAT BITE Time Seen by Provider: 05/18/21 17:34 - History of Present Illness Initial Comments: 86-year-old -[place] female presents to the emergency room stating that her cat bit her on her left wrist while she was giving her a bath. Patient states that she is up-to-date on her tetanus as she had here last. Denies any drainage no fever. She states this happened earlier today. Complaint: animal bite -: This morning Left: Forearm Animal: cat Animal Control Notified: No Description: household pet, immunizations UTD Mechanism: bite Severity scale (0 -10): 4 Associated Symptoms: none - Related Data Patient Tetanus UTD: Yes Home Medications Medication Instructions Recorded Confirmed Last Taken Aspirin [Aspirin BABY CHEW TAB] 81 mg PO QDAY 10/03/13 04/11/21 04/13/21 Pregabalin [Lyrica] 150 mg PO TID 10/03/13 04/11/21 04/13/21 amLODIPine 10 mg PO QDAY 10/03/13 04/11/21 04/14/21 06:00 Cyclobenzaprine HCl [Flexeril 5 MG 5 mg PO Q12HR 04/09/21 04/11/21 04/13/21 TAB] EPINEPHrine [Epinephrinesnap-V] 1 mg IJ PRN PRN 04/09/21 04/11/21 04/10/21 Famotidine [Pepcid] 20 mg PO PRN PRN 04/09/21 04/11/21 04/13/21 Gabapentin 300 mg PO TID 04/09/21 04/11/21 04/14/21 06:00 Loratadine [Allergy] 10 mg PO PRN PRN 04/09/21 04/11/21 04/13/21 Nitroglycerin [Nitrostat] 0.4 mg SL Q5M PRN 04/09/21 04/11/21 Unknown Previous Rx's Medication Instructions Recorded Last Taken Type traMADoL [Ultram 50 MG tab] 50 mg PO Q6HR PRN #12 tablet 12/04/20 04/13/21 Rx Amoxicillin/K Clav Tab [Augmentin 1 tab PO Q12HR 7 Days #14 tab 05/18/21 Unknown Rx 875 mg] Allergies Allergy/AdvReac Type Severity Reaction Status Date / Time amitriptyline Allergy PASS OUT Verified 04/09/21 11:58 latex Allergy Rash Verified 03/02/21 12:19 pentosan polysulfate sodium Allergy PASS OUT Verified 04/09/21 11:58 [From Elmiron] codeine AdvReac Vomiting Verified 03/02/21 12:19 morphine AdvReac Anaphylaxis Verified 04/09/21 11:58 msg Allergy Anaphylaxis Uncoded 11/02/14 09:28 ED Review of Systems ROS: Stated complaint: CAT BITE Other details as noted in HPI ED Past Medical Hx - Past Medical History Hx Hypertension: Yes (took amlodipine this morning) Hx Heart Attack/AMI: No Hx GERD: Yes (FOOD RELATED / PRN MEDS) Hx Liver Disease: No Hx Renal Disease: No Hx Kidney Stones: Yes Hx Tuberculosis: No (GRANDFATHER OF TB / PT TEST NEGATIVE) Additional medical history: Coronary artery disease. peripheral neuropathy. CAD. spinal stensossis - Surgical History Hx Coronary Stent: Yes (X1 (2013)) Additional Surgical History: lithotripsies. left ovary removed. tonsillectomy. radio frequency ablation of L4, L5 and S1 - Social History Smoking Status: Never Smoker - Medications Home Medications: Home Medications Medication Instructions Recorded Confirmed Last Taken Type Aspirin [Aspirin BABY CHEW TAB] 81 mg PO QDAY 10/03/13 04/11/21 04/13/21 History Pregabalin [Lyrica] 150 mg PO TID 10/03/13 04/11/21 04/13/21 History amLODIPine 10 mg PO QDAY 10/03/13 04/11/21 04/14/21 06:00 History traMADoL [Ultram 50 MG tab] 50 mg PO Q6HR PRN #12 tablet 12/04/20 04/11/21 04/13/21 Rx Cyclobenzaprine HCl [Flexeril 5 MG 5 mg PO Q12HR 04/09/21 04/11/21 04/13/21 History TAB] EPINEPHrine [Epinephrinesnap-V] 1 mg IJ PRN PRN 04/09/21 04/11/21 04/10/21 History Famotidine [Pepcid] 20 mg PO PRN PRN 04/09/21 04/11/21 04/13/21 History Gabapentin 300 mg PO TID 04/09/21 04/11/21 04/14/21 06:00 History Loratadine [Allergy] 10 mg PO PRN PRN 04/09/21 04/11/21 04/13/21 History Nitroglycerin [Nitrostat] 0.4 mg SL Q5M PRN 04/09/21 04/11/21 Unknown History Amoxicillin/K Clav Tab [Augmentin 1 tab PO Q12HR 7 Days #14 tab 05/18/21 Unknown Rx 875 mg] ED Physical Exam - General General appearance: alert, in no apparent distress - Head Head exam: Present: atraumatic, normocephalic - Eye Eye exam: Present: normal appearance - ENT ENT exam: Present: mucous membranes moist - Neck Neck exam: Present: normal inspection - Respiratory Respiratory exam: Present: normal lung sounds bilaterally. Absent: respiratory distress - Cardiovascular Cardiovascular Exam: Present: regular rate, normal rhythm. Absent: systolic murmur, diastolic murmur, rubs, gallop - GI/Abdominal GI/Abdominal exam: Present: soft, normal bowel sounds - Extremities Exam Extremities exam: Present: normal inspection - Back Exam Back exam: Present: normal inspection - Neurological Exam Neurological exam: Present: alert, oriented X3 - Psychiatric Psychiatric exam: Present: normal affect, normal mood - Skin Skin exam: Present: warm, dry, intact, normal color, other (Three scratches to the left wrist nonerythematous no edema no warmth or discharge.). Absent: rash ED Course Vital Signs 05/18/21 17:34 Temperature 98.4 F Pulse Rate 107 H Respiratory 20 Rate Blood Pressure 123/75 O2 Sat by Pulse 99 Oximetry Critical care attestation.: If time is entered above; I have spent that time in minutes in the direct care of this critically ill patient, excluding procedure time. ED Disposition Clinical Impression: Animal bite of left wrist Disposition: HOME / SELF CARE / HOMELESS Is pt being admited?: No Does the pt Need Aspirin: No Condition: Stable Instructions: Animal Bite, Adult, [id number] Additional Instructions: Complete antibiotics as prescribed. Pain medication such as Tylenol or ibuprofen. Keep your wound clean and dry you can apply triple antibiotic ointment. Follow-up with Dr. Richey if you have any further concerns. Prescriptions: Amoxicillin/K Clav Tab [Augmentin 875 mg] 1 tab PO Q12HR 7 Days #14 tab Referrals: GERARDO RICHEY MD [Staff Physician] - 3-5 Days Time of Disposition: 17:46
== END 2021-05-18 17:53 | disposition home or self-care (01) ==
LOC: ED 17:30
DX: S61.552A Open bite of left wrist, initial encounter (principal); K21.9 Gastro-esophageal reflux disease without esophagitis; I25.10 Atherosclerotic heart disease of native coronary artery without angina pectoris; G62.9 Polyneuropathy, unspecified; M48.00 Spinal stenosis, site unspecified; Z98.890 Other specified postprocedural states; Z91.040 Latex allergy status; Z88.5 Allergy status to narcotic agent; Z91.018 Allergy to other foods; Z88.8 Allergy status to other drugs, medicaments and biological substances; W55.01XA Bitten by cat, initial encounter; Y93.89 Activity, other specified; Y92.89 Other specified places as the place of occurrence of the external cause; Y99.8 Other external cause status
CPT/HCPCS: 90471; 90715; 99281

== ENCOUNTER 2021-08-05 16:24 | Inpatient (IN) | payer MEDICARE ==
[2021-08-05 18:12] LABS: Basophils # (Auto) 0.1 K/mm3 (0.0-0.1); Eosinophils # (Auto) 0.1 K/mm3 (0.0-0.4); Eosinophils % (Auto) 1.9 % (0.0-4.3); Hematocrit 40.8 % (30.3-42.9); Hemoglobin 13.6 gm/dl (10.1-14.3); Lymphocytes # (Auto) 1.7 K/mm3 (1.2-5.4); Lymphocytes % (Auto) 34.9 % (13.4-35.0); Mean Corpuscular HGB Conc 33 % (30-34); Mean Corpuscular Volume 89 fl (79-97); Monocytes # (Auto) 0.4 K/mm3 (0.0-0.8); Monocytes % (Auto) 8.8 % (0.0-7.3); Platelet Count 313 K/mm3 (140-440); Red Blood Count 4.57 M/mm3 (3.65-5.03); Red Cell Distribution Width 14.3 % (13.2-15.2)
[2021-08-05 18:35] LABS: Bilirubin,Urine NEG (Negative); Blood,Urine MOD (Negative); Color,Urine Yellow (Yellow); Mucus,Urine FEW /HPF; Protein,Urine <15 mg/dL mg/dL (Negative); Urobilinogen,Urine < 2.0 mg/dL (<2.0)
[2021-08-05 18:36] LABS: Alanine Aminotransferase 17 units/L (7-56); Albumin 4.5 g/dL (3.9-5); Blood Urea Nitrogen 9 mg/dL (7-17); Hemolysis Index 24
[2021-08-05 18:41] LABS: BUN/Creatinine Ratio 15
[2021-08-05] MEDS ORDERED: SODIUM CHLORIDE 0.9% 1000 ML 1,000 ML IV ONE ×2 (20:34→22:08)
[2021-08-05] MEDS ORDERED: ONDANSETRON 4 MG/2 ML INJ IV ONE (20:34)
[2021-08-05] MEDS ORDERED: KETOROLAC 30 MG/1 ML INJ IV ONE (20:37)
--- NOTE | 2021-08-05 20:45 | Event Note ---
ED Screening Note Date of service: 08/05/21 Time: 20:44 ED Screening Note: PT is a 86 y/o female with hx of HTN, DMII, Diverticulitis This initial assessment/diagnostic orders/clinical plan/treatment(s) is/are subject to change based on patients health status, clinical progression and re-assessment by fellow clinical providers in the ED. Further treatment and workup at subsequent clinical providers discretion. Patient/guardian urged not to elope from the ED as their condition may be serious if not clinically assessed and managed. Initial orders include: CMP, Trop, CBC, Lipase, CXR , EKG, CT Abd Pelvis, UA
--- NOTE | 2021-08-05 21:19 | Cat Scan Report ---
CT ABDOMEN AND PELVIS WITHOUT CONTRAST INDICATION / CLINICAL INFORMATION: abd pain hx diverticulitis. TECHNIQUE: Axial CT images were obtained through the abdomen and pelvis without IV contrast. All CT scans at this location are performed using CT dose reduction for ALARA by means of automated exposure control. COMPARISON: None available. FINDINGS: LOWER CHEST: No significant abnormality. LIVER: No significant abnormality. GALLBLADDER: No significant abnormality. PANCREAS: No significant abnormality. SPLEEN: No significant abnormality. ADRENALS: No significant abnormality. RIGHT KIDNEY / URETER: No significant abnormality. LEFT KIDNEY / URETER: No significant abnormality. STOMACH / SMALL BOWEL: No significant abnormality. COLON: Diverticulosis without acute inflammation. APPENDIX: No significant abnormality. PERITONEUM: No free fluid, free air or organized collection. LYMPH NODES: No significant adenopathy. AORTA / ARTERIES/ VEINS: Moderate atherosclerotic calcification without acute abnormality. URINARY BLADDER: No significant abnormality. REPRODUCTIVE ORGANS: No significant abnormality. ADDITIONAL FINDINGS: None. SKELETAL SYSTEM: Multilevel degenerative changes of the thoracolumbar spine. There is grade 1 anterol isthesis L4-5. IMPRESSION: 1. No acute abnormality. 2. Colonic diverticulosis without diverticulitis. 3. Other chronic findings as above. Signer Name: Rancho Morrissey MD Signed: 08/05/2021 9:14 PM Workstation Name: [id number]
--- NOTE | 2021-08-05 22:02 | Emergency Department Report ---
ED Abdominal Pain HPI - General Chief Complaint: Abdominal Pain Stated Complaint: ABD PAINS Source: patient Mode of arrival: Wheelchair Limitations: No Limitations - History of Present Illness Severity scale (0 -10): 6 - Related Data Home Medications Medication Instructions Recorded Confirmed Last Taken Aspirin [Aspirin BABY CHEW TAB] 81 mg PO QDAY 10/03/13 06/12/21 04/13/21 Pregabalin [Lyrica] 150 mg PO TID 10/03/13 06/12/21 04/13/21 amLODIPine 10 mg PO QDAY 10/03/13 06/12/21 04/14/21 06:00 Cyclobenzaprine HCl [Flexeril 5 MG 5 mg PO Q12HR 04/09/21 06/12/21 04/13/21 TAB] EPINEPHrine [Epinephrinesnap-V] 1 mg IJ PRN PRN 04/09/21 06/12/21 04/10/21 Famotidine [Pepcid] 20 mg PO PRN PRN 04/09/21 06/12/21 04/13/21 Gabapentin 300 mg PO TID 04/09/21 06/12/21 04/14/21 06:00 Loratadine [Allergy] 10 mg PO PRN PRN 04/09/21 06/12/21 04/13/21 Nitroglycerin [Nitrostat] 0.4 mg SL Q5M PRN 04/09/21 06/12/21 Unknown Previous Rx's Medication Instructions Recorded Last Taken Type traMADoL [Ultram 50 MG tab] 50 mg PO Q6HR PRN #12 tablet 12/04/20 04/13/21 Rx Amoxicillin/K Clav Tab [Augmentin 1 tab PO Q12HR 7 Days #14 tab 05/18/21 Unknown Rx 875 mg] oxyCODONE /ACETAMINOPHEN [Percocet 1 tab PO Q6HR PRN #24 tablet 06/17/21 Unknown Rx 5/325] Allergies Allergy/AdvReac Type Severity Reaction Status Date / Time amitriptyline Allergy PASS OUT Verified 08/05/21 17:26 latex Allergy Rash Verified 08/05/21 17:26 pentosan polysulfate sodium Allergy PASS OUT Verified 08/05/21 17:26 [From Elmiron] codeine AdvReac Vomiting Verified 08/05/21 17:26 morphine AdvReac Anaphylaxis Verified 08/05/21 17:26 msg Allergy Anaphylaxis Uncoded 08/05/21 17:27 ED Review of Systems ROS: Stated complaint: ABD PAINS Other details as noted in HPI ED Past Medical Hx - Past Medical History Hx Hypertension: Yes (took amlodipine this morning) Hx Heart Attack/AMI: No Hx GERD: Yes (FOOD RELATED / PRN MEDS) Hx Liver Disease: No Hx Renal Disease: No Hx Kidney Stones: Yes Hx Tuberculosis: No (GRANDFATHER OF TB / PT TEST NEGATIVE) Additional medical history: Coronary artery disease. peripheral neuropathy. CAD. spinal stensossis - Surgical History Hx Coronary Stent: Yes (X1 (2013)) Additional Surgical History: lithotripsies. left ovary removed. tonsillectomy. radio frequency ablation of L4, L5 and S1 - Social History Smoking Status: Never Smoker - Medications Home Medications: Home Medications Medication Instructions Recorded Confirmed Last Taken Type Aspirin [Aspirin BABY CHEW TAB] 81 mg PO QDAY 10/03/13 06/12/21 04/13/21 History Pregabalin [Lyrica] 150 mg PO TID 10/03/13 06/12/21 04/13/21 History amLODIPine 10 mg PO QDAY 10/03/13 06/12/21 04/14/21 06:00 History traMADoL [Ultram 50 MG tab] 50 mg PO Q6HR PRN #12 tablet 12/04/20 06/12/21 04/13/21 Rx Cyclobenzaprine HCl [Flexeril 5 MG 5 mg PO Q12HR 04/09/21 06/12/21 04/13/21 History TAB] EPINEPHrine [Epinephrinesnap-V] 1 mg IJ PRN PRN 04/09/21 06/12/21 04/10/21 History Famotidine [Pepcid] 20 mg PO PRN PRN 04/09/21 06/12/21 04/13/21 History Gabapentin 300 mg PO TID 04/09/21 06/12/21 04/14/21 06:00 History Loratadine [Allergy] 10 mg PO PRN PRN 04/09/21 06/12/21 04/13/21 History Nitroglycerin [Nitrostat] 0.4 mg SL Q5M PRN 04/09/21 06/12/21 Unknown History Amoxicillin/K Clav Tab [Augmentin 1 tab PO Q12HR 7 Days #14 tab 05/18/21 06/12/21 Unknown Rx 875 mg] oxyCODONE /ACETAMINOPHEN [Percocet 1 tab PO Q6HR PRN #24 tablet 06/17/21 Unknown Rx 5/325] ED Physical Exam - General Limitations: No Limitations ED Course Vital Signs 08/05/21 08/05/21 17:25 21:09 Temperature 98.6 F Pulse Rate 114 H Respiratory 14 16 Rate Blood Pressure 181/92 [Left] O2 Sat by Pulse 100 Oximetry ED Medical Decision Making - Lab Data Result diagrams: 08/05/21 17:54 08/05/21 17:54 - Medical Decision Making T ABDOMEN AND PELVIS WITHOUT CONTRAST INDICATION / CLINICAL INFORMATION: abd pain hx diverticulitis. TECHNIQUE: Axial CT images were obtained through the abdomen and pelvis without IV contrast. All CT scans at this location are performed using CT dose reduction for ALARA by means of automated exposure control. COMPARISON: None available. FINDINGS: LOWER CHEST: No significant abnormality. LIVER: No significant abnormality. GALLBLADDER: No significant abnormality. PANCREAS: No significant abnormality. SPLEEN: No significant abnormality. ADRENALS: No significant abnormality. RIGHT KIDNEY / URETER: No significant abnormality. LEFT KIDNEY / URETER: No significant abnormality. STOMACH / SMALL BOWEL: No significant abnormality. COLON: Diverticulosis without acute inflammation. APPENDIX: No significant abnormality. PERITONEUM: No free fluid, free air or organized collection. LYMPH NODES: No significant adenopathy. AORTA / ARTERIES/ VEINS: Moderate atherosclerotic calcification without acute abnormality. URINARY BLADDER: No significant abnormality. REPRODUCTIVE ORGANS: No significant abnormality. ADDITIONAL FINDINGS: None. SKELETAL SYSTEM: Multilevel degenerative changes of the thoracolumbar spine. There is grade 1 anterolisthesis L4-5. IMPRESSION: 1. No acute abnormality. 2. Colonic diverticulosis without diverticulitis. 3. Other chronic findings as above. Signer Name: Rancho Rodriguez MD Signed: 08/05/2021 9:14 PM Workstation Name: [id number] Transcribed By: SB Dictated By: RANCHO RODRIGUEZ MD Electronically Authenticated By: RANCHO RODRIGUEZ MD Signed Date/Time: 08/05/212113 DD/ 11 TD/TT: Critical care attestation.: If time is entered above; I have spent that time in minutes in the direct care of this critically ill patient, excluding procedure time. ED Disposition Condition: Stable Instructions: Abdominal Pain (ED) Referrals: PRIMARY CARE, [Primary Care Provider] - 3-5 Days
[2021-08-05] MEDS ORDERED: fentaNYL 100 MCG/2 ML INJ IV ONE (22:09)
[2021-08-05] MEDS ORDERED: cloNIDine 0.2 MG TAB PO ONE (22:13)
--- NOTE | 2021-08-05 22:14 | Emergency Department Report ---
HPI - General Chief Complaint: Abdominal Pain Time Seen by Provider: 08/05/21 21:55 - HPI HPI: MSE 6 The patient is an 86-year-old female present with chief complaint of abdominal pain. Patient states she has had left-sided abdominal pain since yesterday. Patient describes the pain as sharp in nature and constant. Patient denies nausea vomiting or diarrhea. Patient states she attempted to have a bowel movement today and when wiping she noticed clear/white mucus which prompted her to come to the emergency department. Patient denies history of fever ED Past Medical Hx - Past Medical History Hx Hypertension: Yes (took amlodipine this morning) Hx GERD: Yes (FOOD RELATED / PRN MEDS) Hx Kidney Stones: Yes Hx Tuberculosis: No (GRANDFATHER OF TB / PT TEST NEGATIVE) Additional medical history: Coronary artery disease. peripheral neuropathy. CAD. spinal stensossis - Surgical History Hx Coronary Stent: Yes (X1 (2013)) Additional Surgical History: lithotripsies. left ovary removed. tonsillectomy. radio frequency ablation of L4, L5 and S1 - Family History Family history: no significant - Social History Smoking Status: Never Smoker Substance Use Type: Alcohol (Occasional) - Medications Home Medications: Home Medications Medication Instructions Recorded Confirmed Last Taken Type Aspirin [Aspirin BABY CHEW TAB] 81 mg PO QDAY 10/03/13 06/12/21 04/13/21 History Pregabalin [Lyrica] 150 mg PO TID 10/03/13 06/12/21 04/13/21 History amLODIPine 10 mg PO QDAY 10/03/13 06/12/21 04/14/21 06:00 History traMADoL [Ultram 50 MG tab] 50 mg PO Q6HR PRN #12 tablet 12/04/20 06/12/21 04/13/21 Rx Cyclobenzaprine HCl [Flexeril 5 MG 5 mg PO Q12HR 04/09/21 06/12/21 04/13/21 History TAB] EPINEPHrine [Epinephrinesnap-V] 1 mg IJ PRN PRN 04/09/21 06/12/21 04/10/21 History Famotidine [Pepcid] 20 mg PO PRN PRN 04/09/21 06/12/21 04/13/21 History Gabapentin 300 mg PO TID 04/09/21 06/12/21 04/14/21 06:00 History Loratadine [Allergy] 10 mg PO PRN PRN 04/09/21 06/12/21 04/13/21 History Nitroglycerin [Nitrostat] 0.4 mg SL Q5M PRN 04/09/21 06/12/21 Unknown History Amoxicillin/K Clav Tab [Augmentin 1 tab PO Q12HR 7 Days #14 tab 05/18/21 12/0 09/01 Unknown Rx 875 mg] oxyCODONE /ACETAMINOPHEN [Percocet 1 tab PO Q6HR PRN #24 tablet 06/17/21 Unknown Rx 5/325] ED Review of Systems ROS: Stated complaint: ABD PAINS Other details as noted in HPI Constitutional: denies: fever Eyes: denies: eye pain ENT: denies: throat pain Respiratory: no symptoms reported Cardiovascular: denies: chest pain Endocrine: no symptoms reported Gastrointestinal: abdominal pain. denies: nausea, vomiting Genitourinary: denies: dysuria Musculoskeletal: denies: back pain Neurological: denies: headache Physical Exam - Physical Exam Vital Signs: Vital Signs 08/05/21 08/05/21 17:25 21:09 Temperature 98.6 F Pulse Rate 114 H Respiratory 14 16 Rate Blood Pressure 181/92 [Left] O2 Sat by Pulse 100 Oximetry Physical Exam: GENERAL: The patient is well-developed well-nourished female sitting in wheelchair not appearing to be in acute distress HEENT: Normocephalic. Atraumatic. Extraocular motions are intact. Patient has moist mucous membranes. NECK: Supple. Trachea midline CHEST/LUNGS: Clear to auscultation. There is no respiratory distress noted. HEART/CARDIOVASCULAR: Regular. There is no tachycardia. There is no gallop rub or murmur. ABDOMEN: Abdomen is soft, with mild tenderness palpation in the left midabdomen. No rebound or guard. Patient has normal bowel sounds. There is no abdominal distention. SKIN: There is no rash. There is no edema. There is no diaphoresis. NEURO: The patient is awake, alert, and oriented. The patient is cooperative. The patient has no focal neurologic deficits. The patient has normal speech. GCS 15 MUSCULOSKELETAL: There is no evidence of acute injury. ED Course Vital Signs 08/05/21 08/05/21 17:25 21:09 Temperature 98.6 F Pulse Rate 114 H Respiratory 14 16 Rate Blood Pressure 181/92 [Left] O2 Sat by Pulse 100 Oximetry ED Medical Decision Making - Lab Data Result diagrams: 08/05/21 17:54 08/05/21 17:54 Laboratory Tests 08/05/21 08/05/21 08/05/21 17:54 17:54 20:57 WBC 4.8 RBC 4.57 Hgb 13.6 Hct 40.8 MCV 89 MCH 30 MCHC 33 RDW 14.3 Plt Count 313 Lymph % (Auto) 34.9 [place] % (Auto) 8.8 H Eos % (Auto) 1.9 Baso % (Auto) 1.0 Lymph # (Auto) 1.7 [place] # (Auto) 0.4 Eos # (Auto) 0.1 Baso # (Auto) 0.1 Seg Neutrophils % 53.4 Seg Neutrophils # 2.6 Sodium 140 Potassium 4.2 Chloride 100.9 Carbon Dioxide 22 Anion Gap 21 BUN 9 Creatinine 0.6 Estimated GFR > 60 BUN/Creatinine Ratio 15 Glucose 96 Calcium 12.0 H Total Bilirubin 0.70 AST 21 ALT 17 Alkaline Phosphatase 122 Troponin T < 0.010 Total Protein 8.2 Albumin 4.5 Albumin/Globulin Ratio 1.2 Urine Color Urine Turbidity Urine pH Ur Specific [place] Urine Protein Urine Glucose (UA) Urine Ketones Urine Blood Urine Nitrite Urine Bilirubin Urine Urobilinogen Ur Leukocyte Esterase Urine WBC (Auto) Urine RBC (Auto) U Epithel Cells (Auto) Urine Mucus 08/05/21 Unknown WBC RBC Hgb Hct MCV MCH MCHC RDW Plt Count Lymph % (Auto) [place] % (Auto) Eos % (Auto) Baso % (Auto) Lymph # (Auto) [place] # (Auto) Eos # (Auto) Baso # (Auto) Seg Neutrophils % Seg Neutrophils # Sodium Potassium Chloride Carbon Dioxide Anion Gap BUN Creatinine Estimated GFR BUN/Creatinine Ratio Glucose Calcium Total Bilirubin AST ALT Alkaline Phosphatase Troponin T Total Protein Albumin Albumin/Globulin Ratio Urine Color Yellow Urine Turbidity Clear Urine pH 6.0 Ur Specific [place] 1.009 Urine Protein <15 mg/dl Urine Glucose (UA) Neg Urine Ketones 20 Urine Blood Mod Urine Nitrite Neg Urine Bilirubin Neg Urine Urobilinogen < 2.0 Ur Leukocyte Esterase Neg Urine WBC (Auto) 4.0 Urine RBC (Auto) 30.0 U Epithel Cells (Auto) < 1.0 Urine Mucus Few - Radiology Data Radiology results: report reviewed (CT abdomen pelvis), image reviewed (CT abdomen pelvis) [facility] [address] [place] [address] Cat Scan Report Signed Patient: LASHON MERAZ MR#: [id number] : 1935 Acct:[id number] Age/Sex: 86 / F ADM Date: 08/05/21 Loc: ED Attending Dr: Ordering Physician: NORAH HUYNH NP Date of Service: 08/05/21 Procedure(s): CT abdomen pelvis wo con Accession Number(s): [id number] cc: NORAH HUYNH NP CT ABDOMEN AND PELVIS WITHOUT CONTRAST INDICATION / CLINICAL INFORMATION: abd pain hx diverticulitis. TECHNIQUE: Axial CT images were obtained through the abdomen and pelvis without IV contrast. All CT scans at this location are performed using CT dose reduction for ALARA by means of automated exposure control. COMPARISON: None available. FINDINGS: LOWER CHEST: No significant abnormality. LIVER: No significant abnormality. GALLBLADDER: No significant abnormality. PANCREAS: No significant abnormality. SPLEEN: No significant abnormality. ADRENALS: No significant abnormality. RIGHT KIDNEY / URETER: No significant abnormality. LEFT KIDNEY / URETER: No significant abnormality. STOMACH / SMALL BOWEL: No significant abnormality. COLON: Diverticulosis without acute inflammation. APPENDIX: No significant abnormality. PERITONEUM: No free fluid, free air or organized collection. LYMPH NODES: No significant adenopathy. AORTA / ARTERIES/ VEINS: Moderate atherosclerotic calcification without acute abnormality. URINARY BLADDER: No significant abnormality. REPRODUCTIVE ORGANS: No significant abnormality. ADDITIONAL FINDINGS: None. SKELETAL SYSTEM: Multilevel degenerative changes of the thoracolumbar spine. There is grade 1 anterolisthesis L4-5. IMPRESSION: 1. No acute abnormality. 2. Colonic diverticulosis without diverticulitis. 3. Other chronic findings as above. Signer Name: Rancho Morrissey MD Signed: 08/05/2021 9:14 PM Workstation Name: [id number] Transcribed By: SB Dictated By: RANCHO MORRISSEY MD Electronically Authenticated By: RANCHO MORRISSEY MD Signed Date/Time: 08/05/212113 DD/ 11 TD/TT: Print Cancel - Differential Diagnosis Diverticulitis, UTI, renal colic, pyelonephritis Critical care attestation.: If time is entered above; I have spent that time in minutes in the direct care of this critically ill patient, excluding procedure time. ED Disposition Clinical Impression: Acute abdominal pain, Hypercalcemia Disposition: ADMITTED INPATIENT Is pt being admited?: Yes Does the pt Need Aspirin: No Condition: Fair Instructions: Abdominal Pain (ED) Referrals: PRIMARY CARE, [Primary Care Provider] - 3-5 Days Time of Disposition: 22:37 (Hospitalist called (Dr. Palacio))
[2021-08-05 23:30] VITALS: BP 168/81
[2021-08-05] MEDS ORDERED: HYDROmorphone 1 MG/1 ML INJ IV PRN (23:42)
[2021-08-05] MEDS ORDERED: ALBUTEROL 2.5 MG/3 ML NEBU IH PRN (23:42)
[2021-08-05] MEDS ORDERED: MORPHINE 2 MG/1 ML INJ IV PRN (23:42)
[2021-08-05] MEDS ORDERED: ACETAMINOPHEN 325 MG TAB PO PRN (23:42)
[2021-08-05] MEDS ORDERED: ONDANSETRON 4 MG/2 ML INJ IV PRN (23:42)
[2021-08-05] MEDS ORDERED: NITROGLYCERIN 0.4 MG TAB SUBL SL PRN (23:44)
[2021-08-05] MEDS ORDERED: SODIUM CHLORIDE 0.45% 1000 ML 1,000 ML IV SCH (23:45)
--- NOTE | 2021-08-05 23:50 | History and Physical Report ---
History of Present Illness Date of examination: 08/05/21 Date of admission: 08/05/21 Chief complaint: Abdominal pain History of present illness: 86-year-old female present with chief complaint of abdominal pain. Patient states she has had left-sided abdominal pain since yesterday. Patient describes the pain as sharp in nature and constant. Patient denies nausea vomiting or diarrhea. Patient states she attempted to have a bowel movement today and when wiping she noticed clear/white mucus which prompted her to come to the emergency department. Patient denies history of fever In the emergency room patient CT scan of the abdomen and pelvis shows no acute abnormality colonic diverticulosis without diverticulitis. But patient calcium found to have 12.0's were going to admit the patient we are going to put the patient IV fluid Pepcid and Lasix. We will recheck the BMP in the Past History Past Medical History: GERD, hypertension, other (Kidney stoneCoronary artery disease. peripheral neuropathy. CAD. spinal stensossis) Past Surgical History: Other (lithotripsies. left ovary removed. tonsillectomy. radio frequency ablation of L4, L5 and S1 coronary stent) Medications and Allergies Allergies Allergy/AdvReac Type Severity Reaction Status Date / Time amitriptyline Allergy PASS OUT Verified 08/05/21 17:26 latex Allergy Rash Verified 08/05/21 17:26 pentosan polysulfate sodium Allergy PASS OUT Verified 08/05/21 17:26 [From [place]] codeine AdvReac Vomiting Verified 08/05/21 17:26 morphine AdvReac Anaphylaxis Verified 08/05/21 17:26 msg Allergy Anaphylaxis Uncoded 08/05/21 17:27 Home Medications Medication Instructions Recorded Confirmed Last Taken Type Aspirin [Aspirin BABY CHEW TAB] 81 mg PO QDAY 10/03/13 06/12/21 04/13/21 History Pregabalin [Lyrica] 150 mg PO TID 10/03/13 06/12/21 04/13/21 History amLODIPine 10 mg PO QDAY 10/03/13 06/12/21 04/14/21 06:00 History traMADoL [Ultram 50 MG tab] 50 mg PO Q6HR PRN #12 tablet 12/04/20 06/12/21 04/13/21 Rx Cyclobenzaprine HCl [Flexeril 5 MG 5 mg PO Q12HR 04/09/21 06/12/21 04/13/21 History TAB] EPINEPHrine [Epinephrinesnap-V] 1 mg IJ PRN PRN 04/09/21 06/12/21 04/10/21 History Famotidine [Pepcid] 20 mg PO PRN PRN 04/09/21 06/12/21 04/13/21 History Gabapentin 300 mg PO TID 04/09/21 06/12/21 04/14/21 06:00 History Loratadine [Allergy] 10 mg PO PRN PRN 04/09/21 06/12/21 04/13/21 History Nitroglycerin [Nitrostat] 0.4 mg SL Q5M PRN 04/09/21 06/12/21 Unknown History Amoxicillin/K Clav Tab [Augmentin 1 tab PO Q12HR 7 Days #14 tab 05/18/21 06/12/21 Unknown Rx 875 mg] oxyCODONE /ACETAMINOPHEN [Percocet 1 tab PO Q6HR PRN #24 tablet 06/17/21 Unknown Rx 5/325] Active Meds: Active Medications Acetaminophen (Acetaminophen 325 Mg Tab) 650 mg PO Q4H PRN PRN Reason: Pain MILD(1-3)/Fever >100.5/PURI Albuterol (Albuterol 2.5 Mg/3 Ml Nebu) 2.5 mg IH Q3HRT PRN PRN Reason: Shortness Of Breath Albuterol/Ipratropium (Ipratropium/Albuterol Sulfate 3 Ml Ampul.Neb) 1 ampul IH Q6HRT SATNAM Amlodipine Besylate (Amlodipine 10 Mg Tab) 10 mg PO QDAY [facility] Amoxicillin/Clavulanate Potassium (Amoxicillin/K Clav 875/125mg Tab) 1 each PO Q12HR SATNAM; Protocol Aspirin (Aspirin 81 Mg Tab Chew) 81 mg PO QDAY SATNAM Famotidine (Famotidine 20 Mg/2 Ml Inj) 20 mg IV BID SATNAM Furosemide (Furosemide 40 Mg/4 Ml Inj) 40 mg IV ONCE ONE Stop: 08/05/21 23:46 Heparin Sodium (Porcine) (Heparin 5,000 Unit/1 Ml Vial) 5,000 unit SUB-Q Q12HR SATNAM Hydromorphone HCl (Hydromorphone 1 Mg/1 Ml Inj) 0.5 mg IV Q3H PRN PRN Reason: Pain , Severe (7-10) Sodium Chloride (Nacl 0.9% 1000 Ml) 1,000 mls @ 250 mls/hr IV ONCE ONE Stop: 08/06/21 02:07 Last Admin: 08/05/21 23:32 Dose: 250 mls/hr Sodium Chloride (Nacl 0.45% 1000 Ml) 1,000 mls @ 125 mls/hr IV DIRECT SATNAM Miscellaneous Medication (Cyclobenzaprine Hcl [Flexeril 5 Mg Tab]) 5 mg PO Q12HR SATNAM Miscellaneous Medication (Pregabalin [Lyrica]) 150 mg PO TID SATNAM Morphine Sulfate (Morphine 2 Mg/1 Ml Inj) 2 mg IV Q4H PRN PRN Reason: Pain, Moderate (4-6) Nitroglycerin (Nitroglycerin 0.4 Mg Tab Subl) 0.4 mg SL Q5M PRN PRN Reason: Chest Pain Ondansetron HCl (Ondansetron 4 Mg/2 Ml Inj) 4 mg IV Q8H PRN PRN Reason: Nausea And Vomiting Sodium Chloride (Sodium Chloride 0.9% 10 Ml Flush Syringe) 10 ml IV BID SATNAM Sodium Chloride (Sodium Chloride 0.9% 10 Ml Flush Syringe) 10 ml IV PRN PRN PRN Reason: LINE FLUSH Review of Systems All systems: negative Gastrointestinal: abdominal pain Exam - Constitutional Vitals: Temp Pulse Resp BP Pulse Ox 98.6 F 99 H 16 168/81 100 08/05/21 17:25 08/05/21 23:25 08/05/21 23:29 08/05/21 23:25 08/05/21 17:25 General appearance: Present: no acute distress, well-nourished - EENT Eyes: Present: PERRL ENT: hearing intact, clear oral mucosa - Neck Neck: Present: supple, normal ROM - Respiratory Respiratory effort: normal Respiratory: bilateral: CTA - Cardiovascular Heart Sounds: Present: S1 & S2. Absent: rub, click - Extremities Extremities: pulses symmetrical, No edema Peripheral Pulses: within normal limits - Abdominal General gastrointestinal: Present: soft, non-tender, non-distended, normal bowel sounds Female genitourinary: Present: normal - Integumentary Integumentary: Present: clear, warm, dry - Musculoskeletal Musculoskeletal: gait normal, strength equal bilaterally - Psychiatric Psychiatric: appropriate mood/affect, intact judgment & insight - Neurologic Neurologic: CNII-XII intact, moves all extremities HEART Score - HEART Score Troponin: Troponin T < 0.010 ng/mL (0.00-0.029) 08/05/21 20:57 Results - Labs CBC & Chem 7: 08/05/21 17:54 08/05/21 17:54 Labs: Laboratory Last Values WBC 4.8 K/mm3 (4.5-11.0) 08/05/21 17:54 RBC 4.57 M/mm3 (3.65-5.03) 08/05/21 17:54 Hgb 13.6 gm/dl (10.1-14.3) 08/05/21 17:54 Hct 40.8 % (30.3-42.9) 08/05/21 17:54 MCV 89 fl (79-97) 08/05/21 17:54 MCH 30 pg (28-32) 08/05/21 17:54 MCHC 33 % (30-34) 08/05/21 17:54 RDW 14.3 % (13.2-15.2) 08/05/21 17:54 Plt Count 313 K/mm3 (140-440) 08/05/21 17:54 Lymph % (Auto) 34.9 % (13.4-35.0) 08/05/21 17:54 [place] % (Auto) 8.8 % (0.0-7.3) H 08/05/21 17:54 Eos % (Auto) 1.9 % (0.0-4.3) 08/05/21 17:54 Baso % (Auto) 1.0 % (0.0-1.8) 08/05/21 17:54 Lymph # (Auto) 1.7 K/mm3 (1.2-5.4) 08/05/21 17:54 [place] # (Auto) 0.4 K/mm3 (0.0-0.8) 08/05/21 17:54 Eos # (Auto) 0.1 K/mm3 (0.0-0.4) 08/05/21 17:54 Baso # (Auto) 0.1 K/mm3 (0.0-0.1) 08/05/21 17:54 Seg Neutrophils % 53.4 % (40.0-70.0) 08/05/21 17:54 Seg Neutrophils # 2.6 K/mm3 (1.8-7.7) 08/05/21 17:54 Sodium 140 mmol/L (137-145) 08/05/21 17:54 Potassium 4.2 mmol/L (3.6-5.0) 08/05/21 17:54 Chloride 100.9 mmol/L (98-107) 08/05/21 17:54 Carbon Dioxide 22 mmol/L (22-30) 08/05/21 17:54 Anion Gap 21 mmol/L 08/05/21 17:54 BUN 9 mg/dL (7-17) 08/05/21 17:54 Creatinine 0.6 mg/dL (0.6-1.2) 08/05/21 17:54 Estimated GFR > 60 ml/min 08/05/21 17:54 BUN/Creatinine Ratio 15 % 08/05/21 17:54 Glucose 96 mg/dL (65-100) 08/05/21 17:54 Calcium 12.0 mg/dL (8.4-10.2) H 08/05/21 17:54 Total Bilirubin 0.70 mg/dL (0.1-1.2) 08/05/21 17:54 AST 21 units/L (5-40) 08/05/21 17:54 ALT 17 units/L (7-56) 08/05/21 17:54 Alkaline Phosphatase 122 units/L (35-129) 08/05/21 17:54 Troponin T < 0.010 ng/mL (0.00-0.029) 08/05/21 20:57 Total Protein 8.2 g/dL (6.3-8.2) 08/05/21 17:54 Albumin 4.5 g/dL (3.9-5) 08/05/21 17:54 Albumin/Globulin Ratio 1.2 % 08/05/21 17:54 Urine Color Yellow (Yellow) 08/05/21 Unknown Urine Turbidity Clear (Clear) 08/05/21 Unknown Urine pH 6.0 (5.0-7.0) 08/05/21 Unknown Ur Specific [place] 1.009 (1.003-1.030) 08/05/21 Unknown Urine Protein <15 mg/dl mg/dL (Negative) 08/05/21 Unknown Urine Glucose (UA) Neg mg/dL (Negative) 08/05/21 Unknown Urine Ketones 20 mg/dL (Negative) 08/05/21 Unknown Urine Blood Mod (Negative) 08/05/21 Unknown Urine Nitrite Neg (Negative) 08/05/21 Unknown Urine Bilirubin Neg (Negative) 08/05/21 Unknown Urine Urobilinogen < 2.0 mg/dL (<2.0) 08/05/21 Unknown Ur Leukocyte Esterase Neg (Negative) 08/05/21 Unknown Urine WBC (Auto) 4.0 /HPF (0.0-6.0) 08/05/21 Unknown Urine RBC (Auto) 30.0 /HPF (0.0-6.0) 08/05/21 Unknown U Epithel Cells (Auto) < 1.0 /HPF (0-13.0) 08/05/21 Unknown Urine Mucus Few /HPF 08/05/21 Unknown - Imaging and Cardiology CT scan - abdomen: report reviewed Assessment and Plan VTE prophylaxis?: Chemical Plan of care discussed with patient/family: Yes - Patient Problems (1) Acute abdominal pain Current Visit: Yes Status: Acute Plan to address problem: Admit the patient to the medical floor. Cardiac diet IV fluid half-normal saline at the rate of 125 cc/h. Pepcid 20 mg IV every 12 hours. Morphine 2 mg IV every 4 hours as needed. Will consult GI if needed (2) Hypercalcemia Current Visit: Yes Status: Acute Plan to address problem: Half-normal saline at the rate of 125 cc/h. Lasix 40 mg IV x1 dose. We will recheck the BMP in the morning (3) GERD (gastroesophageal reflux disease) Current Visit: Yes Status: Acute Plan to address problem: Pepcid 20 mg IV every 12 hours. We continue the home medication (4) Kidney stone Current Visit: Yes Status: Acute Plan to address problem: Stable. Outpatient follow-up with nephrology. (5) Hypertension Current Visit: Yes Status: Acute Plan to address problem: Amlodipine 10 mg p.o. daily. Hydralazine 10 mg IV every 6 hours as needed. We will monitor the blood pressure closely (6) DVT prophylaxis Current Visit: No Status: Acute Plan to address problem: Heparin 5000 units subcu every 8 hours for DVT prophylaxis. Pepcid 20 mg IV every 12 hours for GI prophylaxis. Patient is a full code
[2021-08-06] MEDS ORDERED: IPRATROPIUM/ALBUTEROL SULFATE 3 ML AMPUL.NEB IH SCH (02:00)
[2021-08-06] MEDS ORDERED: FUROSEMIDE 40 MG/4 ML INJ IV ONE ×2 (02:15→04:31)
[2021-08-06 04:43] LABS: Basophils % (Auto) 1.1 % (0.0-1.8); Eosinophils # (Auto) 0.1 K/mm3 (0.0-0.4); Eosinophils % (Auto) 2.3 % (0.0-4.3); Hemoglobin 12.1 gm/dl (10.1-14.3); Lymphocytes # (Auto) 1.5 K/mm3 (1.2-5.4); Lymphocytes % (Auto) 34.3 % (13.4-35.0); Mean Corpuscular HGB Conc 32 % (30-34); Mean Corpuscular Volume 91 fl (79-97); Monocytes # (Auto) 0.4 K/mm3 (0.0-0.8); Monocytes % (Auto) 10.1 % (0.0-7.3); Platelet Count 282 K/mm3 (140-440); Red Blood Count 4.16 M/mm3 (3.65-5.03); Red Cell Distribution Width 14.4 % (13.2-15.2)
[2021-08-06 04:56] LABS: Blood Urea Nitrogen 12 mg/dL (7-17); Calcium 10.4 mg/dL (8.4-10.2); Hemolysis Index 4
[2021-08-06 05:04] LABS: BUN/Creatinine Ratio 20
[2021-08-06] MEDS ORDERED: PREGABALIN 75 MG CAP PO SCH (08:00)
--- NOTE | 2021-08-06 08:52 | Electrocardiograph Report ---
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
[2021-08-06] MEDS ORDERED: CYCLOBENZAPRINE 10 MG TAB PO SCH (10:00)
[2021-08-06] MEDS ORDERED: FAMOTIDINE 20 MG/2 ML INJ IV SCH (10:00)
[2021-08-06] MEDS ORDERED: FAMOTIDINE 20 MG TAB PO SCH (10:00)
[2021-08-06] MEDS ORDERED: AMOXICILLIN/K CLAV 875/125MG TAB PO SCH (10:00)
[2021-08-06] MEDS ORDERED: amLODIPine 10 MG TAB PO SCH (10:00)
[2021-08-06] MEDS ORDERED: ASPIRIN 81 MG TAB CHEW PO SCH (10:00)
[2021-08-06] MEDS ORDERED: HEPARIN 5,000 UNIT/1 ML VIAL SUB-Q SCH (10:00)
[2021-08-06] MEDS ORDERED: SODIUM CHLORIDE 0.9% 50 ML IVPB IV PRN (10:37)
[2021-08-06] MEDS ORDERED: KETOROLAC 30 MG/1 ML INJ IV PRN (13:11)
[2021-08-06] MEDS ORDERED: traMADol 50 MG TAB PO PRN (13:12)
[2021-08-06] MEDS ORDERED: NS IV SCH ×2 (14:00)
[2021-08-06] MEDS ORDERED: METRONIDAZOLE IV SCH ×2 (14:00)
--- NOTE | 2021-08-06 19:28 | Progress Note ---
Hospitalist Physical - Constitutional Vitals: Temp Pulse Resp BP Pulse Ox 98.6 F 99 H 16 168/81 100 08/05/21 17:25 08/05/21 23:25 08/05/21 23:29 08/05/21 23:25 08/05/21 17:25 General appearance: Present: no acute distress, well-nourished HEART Score - HEART Score Troponin: Troponin T < 0.010 ng/mL (0.00-0.029) 08/05/21 20:57 Results - Labs CBC & Chem 7: 08/06/21 04:24 08/06/21 04:24 Labs: Laboratory Last Values WBC 4.4 K/mm3 (4.5-11.0) L 08/06/21 04:24 RBC 4.16 M/mm3 (3.65-5.03) 08/06/21 04:24 Hgb 12.1 gm/dl (10.1-14.3) 08/06/21 04:24 Hct 38.0 % (30.3-42.9) 08/06/21 04:24 MCV 91 fl (79-97) 08/06/21 04:24 MCH 29 pg (28-32) 08/06/21 04:24 MCHC 32 % (30-34) 08/06/21 04:24 RDW 14.4 % (13.2-15.2) 08/06/21 04:24 Plt Count 282 K/mm3 (140-440) 08/06/21 04:24 Lymph % (Auto) 34.3 % (13.4-35.0) 08/06/21 04:24 [place] % (Auto) 10.1 % (0.0-7.3) H 08/06/21 04:24 Eos % (Auto) 2.3 % (0.0-4.3) 08/06/21 04:24 Baso % (Auto) 1.1 % (0.0-1.8) 08/06/21 04:24 Lymph # (Auto) 1.5 K/mm3 (1.2-5.4) 08/06/21 04:24 [place] # (Auto) 0.4 K/mm3 (0.0-0.8) 08/06/21 04:24 Eos # (Auto) 0.1 K/mm3 (0.0-0.4) 08/06/21 04:24 Baso # (Auto) 0.0 K/mm3 (0.0-0.1) 08/06/21 04:24 Seg Neutrophils % 52.2 % (40.0-70.0) 08/06/21 04:24 Seg Neutrophils # 2.3 K/mm3 (1.8-7.7) 08/06/21 04:24 Sodium 137 mmol/L (137-145) 08/06/21 04:24 Potassium 3.8 mmol/L (3.6-5.0) 08/06/21 04:24 Chloride 103.8 mmol/L (98-107) 08/06/21 04:24 Carbon Dioxide 22 mmol/L (22-30) 08/06/21 04:24 Anion Gap 15 mmol/L 08/06/21 04:24 BUN 12 mg/dL (7-17) 08/06/21 04:24 Creatinine 0.6 mg/dL (0.6-1.2) 08/06/21 04:24 Estimated GFR > 60 ml/min 08/06/21 04:24 BUN/Creatinine Ratio 20 % 08/06/21 04:24 Glucose 96 mg/dL (65-100) 08/06/21 04:24 Calcium 10.4 mg/dL (8.4-10.2) H 08/06/21 04:24 Phosphorus 3.30 mg/dL (2.5-4.5) 08/06/21 04:24 Total Bilirubin 0.70 mg/dL (0.1-1.2) 08/05/21 17:54 AST 21 units/L (5-40) 08/05/21 17:54 ALT 17 units/L (7-56) 08/05/21 17:54 Alkaline Phosphatase 122 units/L (35-129) 08/05/21 17:54 Troponin T < 0.010 ng/mL (0.00-0.029) 08/05/21 20:57 Total Protein 8.2 g/dL (6.3-8.2) 08/05/21 17:54 Albumin 4.5 g/dL (3.9-5) 08/05/21 17:54 Albumin/Globulin Ratio 1.2 % 08/05/21 17:54 Urine Color Yellow (Yellow) 08/05/21 Unknown Urine Turbidity Clear (Clear) 08/05/21 Unknown Urine pH 6.0 (5.0-7.0) 08/05/21 Unknown Ur Specific [place] 1.009 (1.003-1.030) 08/05/21 Unknown Urine Protein <15 mg/dl mg/dL (Negative) 08/05/21 Unknown Urine Glucose (UA) Neg mg/dL (Negative) 08/05/21 Unknown Urine Ketones 20 mg/dL (Negative) 08/05/21 Unknown Urine Blood Mod (Negative) 08/05/21 Unknown Urine Nitrite Neg (Negative) 08/05/21 Unknown Urine Bilirubin Neg (Negative) 08/05/21 Unknown Urine Urobilinogen < 2.0 mg/dL (<2.0) 08/05/21 Unknown Ur Leukocyte Esterase Neg (Negative) 08/05/21 Unknown Urine WBC (Auto) 4.0 /HPF (0.0-6.0) 08/05/21 Unknown Urine RBC (Auto) 30.0 /HPF (0.0-6.0) 08/05/21 Unknown U Epithel Cells (Auto) < 1.0 /HPF (0-13.0) 08/05/21 Unknown Urine Mucus Few /HPF 08/05/21 Unknown
== END 2021-08-06 19:04 | disposition left against medical advice (07) | DRG 392 ==
LOC: ED 16:24 → 3A 23:42
PROVIDERS: ADMIT Hospitalist; ATTEND Internal Medicine
DX: R10.9 Unspecified abdominal pain (principal); K21.9 Gastro-esophageal reflux disease without esophagitis; E83.52 Hypercalcemia; I10 Essential (primary) hypertension; E11.9 Type 2 diabetes mellitus without complications; Z79.82 Long term (current) use of aspirin; N20.0 Calculus of kidney; Z88.5 Allergy status to narcotic agent; Z88.6 Allergy status to analgesic agent; Z91.014 Allergy to mammalian meats; Z53.29 Procedure and treatment not carried out because of patient's decision for other reasons
CPT/HCPCS: 36415; 74176; 80048; 80053; 81001; 84100; 84484; 85025; 93005; 93010; G0378; J3490; Q0162; J1885; J1940; J1956; J2405; J3010; J7030